=== PATIENT | female | born 1930 | race Caucasian/White ===

== ENCOUNTER → 2017-08-18 | Outpatient (CLI) | payer MEDICARE, OTHER ==
--- NOTE | 2017-08-18 15:28 | WOMENS IMAGING REPORT ---
EXAM DESCRIPTION: BONE DENSITY HIP/SPINE COMPLETED DATE/TIME: 08/18/2017 2:21 pm REASON FOR STUDY: OSTEOPROSIS; M81.0 M81.0 AGE-RELATED OSTEOPOROSIS W/O CURRENT PATHOLOGICAL FRAC COMPARISON: 05/14/2012 10/28/2006 11/01/2003 TECHNIQUE: Dual-Energy X-ray Absorptiometry (DEXA) of the AP Spine and Hip. LIMITATIONS: None. FINDINGS: LUMBAR SPINE: The bone mineral density (BMD) measured from L1-L4 in the AP projection correlates with a T-score of -3.3, which is osteoporosis as defined by the World Health Organization. HIP: The bone mineral density (BMD) measured in the left hip correlates with a T-score of -2.4 in the femo ral neck, which is osteopenia as defined by the World Health Organization. IMPRESSION: 1. LUMBAR SPINE: OSTEOPOROSIS. 2. HIP: OSTEOPENIA. COMMENT: The World Health Organization defines low BMD as follows: T-score: Normal: Greater than -1.0 Osteopenia: Between -1.0 and -2.5 Osteoporosis: Less than -2.5 without fractures Established osteoporosis: Less than -2.5 with fractures In general, you may wish to consider: Diagnosis Treatment Follow-up DEXA Normal BMD Prevention 2-3 years Osteopenia Prevention/Therapy 1-2 years Osteoporosis Therapy Yearly TECHNICAL DOCUMENTATION: JOB ID: [id number]- All Rights Reserved
== END ==
LOC: WI 14:41
PROVIDERS: ATTEND Internal Medicine
DX: M81.0 Age-related osteoporosis without current pathological fracture (principal)
CPT/HCPCS: 77080

== ENCOUNTER 2017-12-09 08:56 | Day surgery (SDC) | payer MEDICARE, OTHER ==
[~2017-12-09 08:56] MED LIST: DIPHENHYDRAMINE HCL 50 MG/ML VIAL ONE; EPINEPHRINE INJ 1 MG/10 ML DISP.SYRIN ONE; FENTANYL CITRATE INJ/PF 100 MCG/2 ML AMPUL ONE; FLUMAZENIL INJ 0.5 MG/5 ML VIAL ONE; GLUCAGON,HUMAN RECOMB 1 MG INJ ONE; MIDAZOLAM 2 MG/2 ML INJ ONE; NALOXONE HCL INJ/PF 0.4 MG/1 ML SDV ONE; ONDANSETRON HCL INJ/PF 4 MG/2 ML SDV ONE
[2017-12-09] MEDS: MIDAZOLAM 2 MG/2 ML INJ ONE ×2 (09:20→09:22)
--- NOTE | 2017-12-09 09:33 | Operative Report ---
Operative Report DATE OF SURGERY: 12/09/17 Operative Report: The risks benefits and alternatives of the procedure explained to the patient in detail and informed consent is obtained.A GIF Olympus video scope was inserted into the patient's mouth and hypopharynx ,the esophagus is identified intubated and insufflated, the scope was then advanced through the esophagus stomach and duodenum, retroflexion maneuver is done, the esophagus stomach and first and second portions of the duodenum examined PREOPERATIVE DIAGNOSIS: Abdominal discomfort, dyspepsia, nausea POSTOPERATIVE DIAGNOSIS: Gastritis status post biopsy rule out Helicobacter pylori. Hiatal hernia OPERATION: EGD with biopsy SURGEON: SKY BROWN ANESTHESIA: Moderate Sedation - 3 mg of Versed. Conscious sedation monitoring time 30 minutes. TISSUE REMOVED OR ALTERED: Gastric mucosal specimen obtained COMPLICATIONS: None. ESTIMATED BLOOD LOSS: None. INTRAOPERATIVE FINDINGS: As noted above. PROCEDURE: Patient tolerated the procedure well. No immediate postprocedure complications are noted. Patient discharged in good condition. Discharge date 12/09/2017. Discharge diet: Regular. Discharge activity: Regular. 2-3 week follow-up to discuss findings. Patient is instructed to call the office or proceed to the emergency room should there be any further problems or questions. We will wait on pathology.
[2017-12-09 10:39] VITALS: BP 98/36
== END 2017-12-09 10:48 | disposition home or self-care (01) ==
LOC: END 08:56
PROVIDERS: ATTEND Internal Medicine Gastroenterology
PROC: 0DB68ZX Excision of Stomach, Via Natural or Artificial Opening Endoscopic, Diagnostic (ICD-10-PCS; principal; 2017-12-09 09:30)
DX: K29.50 Unspecified chronic gastritis without bleeding (principal); K44.9 Diaphragmatic hernia without obstruction or gangrene; I10 Essential (primary) hypertension; E07.9 Disorder of thyroid, unspecified; Z79.82 Long term (current) use of aspirin; Z79.899 Other long term (current) drug therapy; Z88.2 Allergy status to sulfonamides; Z85.828 Personal history of other malignant neoplasm of skin; Z86.19 Personal history of other infectious and parasitic diseases
CPT/HCPCS: 43239; 88342 ×2; 88305 ×2; J2250; J0171; J1200; J1610; J2310; J2405; J3010; J3490

== ENCOUNTER 2017-12-22 05:51 | Day surgery (SDC) | payer MEDICARE, OTHER ==
[2017-12-07 12:18] LABS: HEMATOCRIT 35.1 % (36.0-47.0); HEMOGLOBIN 12.2 g/dL (12.0-15.5); MEAN CORPUSCULAR HEMOGLOBIN 30.8 pg (27.0-33.4); MEAN CORPUSCULAR HGB CONC 34.9 g/dL (32.0-36.0); MEAN CORPUSCULAR VOLUME 88 fl (80-97); PLATELET COUNT 287 10^3/uL (150-450); RED BLOOD COUNT 3.97 10^6/uL (3.72-5.28); RED CELL DISTRIBUTION WIDTH 13.1 % (11.5-14.0); WHITE BLOOD COUNT 8.6 10^3/uL (4.0-10.5)
[2017-12-07 12:24] LABS: INTERNATIONAL RATION (INR) 1.05; PROTHROMBIN TIME 14.4 SEC (11.4-15.4)
[2017-12-07 12:25] LABS: PARTIAL THROMBOPLASTIN TIME 30.8 SEC (23.5-35.8)
--- NOTE | 2017-12-07 12:41 | EKG REPORT ---
SEVERITY:- NORMAL ECG - SINUS RHYTHM : Confirmed by: Fransisco Sharma 07-Dec-2017 12:40:40
[2017-12-07 12:44] LABS: ANION GAP 13 (5-19); BLOOD UREA NITROGEN 19 mg/dL (7-20); CALCIUM 9.7 mg/dL (8.4-10.2); CARBON DIOXIDE 25 mmol/L (22-30); CHLORIDE 94 mmol/L (98-107); GLUCOSE 78 mg/dL (75-110); POTASSIUM 5.2 mmol/L (3.6-5.0); SODIUM 131.5 mmol/L (137-145)
[~2017-12-22 05:51] MED LIST changes: +CEFAZOLIN 1 GM/D5W RTU 1 GM/50 ML RTUPB IV PRN; -DIPHENHYDRAMINE HCL 50 MG/ML VIAL ONE; -EPINEPHRINE INJ 1 MG/10 ML DISP.SYRIN ONE; -FENTANYL CITRATE INJ/PF 100 MCG/2 ML AMPUL ONE; -FLUMAZENIL INJ 0.5 MG/5 ML VIAL ONE; -GLUCAGON,HUMAN RECOMB 1 MG INJ ONE; +LACTATED RINGERS 1000 ML IV PRN; +LIDOCAINE 0.5% INJ-PF (5 MG/ML) 50 ML SDV SUBCUT PRN; +LIDOCAINE 1%/EPINEPHRINE INJ 20 ML VIAL ONE; -MIDAZOLAM 2 MG/2 ML INJ ONE; -NALOXONE HCL INJ/PF 0.4 MG/1 ML SDV ONE; -ONDANSETRON HCL INJ/PF 4 MG/2 ML SDV ONE
[2017-12-22] MEDS ORDERED: PROPOFOL INJ 200 MG/20 ML VIAL IV ONE (07:22)
[2017-12-22] MEDS ORDERED: SODIUM BICARBONATE 8.4% INJ 50 MEQ/50 ML DISP.SYRIN ONE (07:42)
[2017-12-22] MEDS ORDERED: DIPHENHYDRAMINE HCL 50 MG/ML VIAL IV PRN (08:33)
[2017-12-22] MEDS ORDERED: MORPHINE SULFATE 10 MG/ML INJ IV PRN (08:33)
[2017-12-22] MEDS ORDERED: MEPERIDINE HCL/PF INJ 25 MG/1 ML DISP.SYRIN IV PRN (08:33)
[2017-12-22] MEDS ORDERED: FENTANYL CITRATE INJ/PF 100 MCG/2 ML AMPUL IV PRN ×2 (08:33)
--- NOTE | 2017-12-22 09:35 | Operative Report ---
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 Patient was brought into the operating room and placed on the operating room table in a [supine] position. Patient was then prepped with a Betadine scrub and Betadine solution and draped in a sterile and aseptic manner. The area was then marked. 12 O'clock was marked towards the radial forearm 3 O'clock was marked towards the wrist 6:00 was marked towards the ulnar forearm 9:00 was marked towards the elbow The area was then anesthetized with 1% lidocaine with epinephrine and bicarbonate for its anesthetic and hemostatic effects. The area was then excised and marked at 12:00. The specimen was sent for frozen section. The frozen section result came back as positive 3:00 margin. This was diagnosed as a superficial spreading basal cell carcinoma. The 3:00 margin was sent and came back negative. Therefore the final results came back that the deep and lateral margins were free. We had considered a primary closure but this would go against the natural relaxed skin tension lines. A primary closure would be too tight and would have increased chance of dehiscence. This will leave more of a scar so we decided to use a boomerang flap reconstruction which would camouflage the scar better and take tension off of the closure so that would be less chances of complications. Then went ahead and outlined the flap and anesthetized it. It was felt that the boomerang flap would give the least tension because her skin was extremely thin and a tension-free closure for the reconstruction was very important. We then incised the flap and developed a flap maintaining the subdermal plexus. Then we undermined 360 to allow for plate like scarring and minimize trap door deformity. Throughout the case hemostasis was achieved with the bipolar. We then sutured the flap into its new position using [ 4-0 Vicryl] for the subcutaneous and deep dermis. Skin was closed with a [running subcuticular suture] stitch using 4-0 Prolene with knots being tied on the outside. And 4-0 Prolene suture was used for support and placed in the central area of the incision. We then applied tincture benzoin and Steri-Strips followed by a light pressure dressing. Patient was then reversed from anesthesia and taken to the [facility] for recovery. The patient tolerated well. There were no complications. Lesion size was approximately 2.2 x 2 cm, please see pathology for actual size. Portions of this note may be dictated using [employer] voice recognition software. Occasional variations and spelling and vocabulary could be possible and are unintentional. Additionally, there is a chance that some errors may not be caught or corrected. Please notify the author of any discrepancies noted or if any statements are unclear. Subjective: No complaints Objective: Vital signs stable afebrile No bleeding Dressing intact Assessment and plan: Doing well. Elevate the operative site. Resume medications. Take antibiotics for 1 day Follow-up Full instructions were given to the patient and family and they understand Portions of this note may be dictated using [employer] voice recognition software. Occasional variations and spelling and vocabulary could be possible and are unintentional. Additionally, there is a chance that some errors may not be caught or corrected. Please notify the offer of any discrepancies noted or if any statements are unclear.
--- NOTE | 2017-12-22 09:37 | PDOC DISCHARGE SUMMARY ---
Discharge Summary (SDC) - Discharge Final Diagnosis: Superficial spreading basal cell carcinoma Date of Surgery: 12/22/17 Condition: Good Treatment or Instructions: Leave the top dressing on for 2 days, then removed. Leave the steri-strip tapes on for 5 days, then removal. Then cleaning wound with peroxide and apply Neosporin/bacitracin 3 times per day. Antibiotics for 1 day, then discontinue. Elevate operative area to decrease swelling. Do not strain, or lift heavy objects. Call for excessive bleeding, increased temperature of 101, uncontrolled pain, or excessive nausea or vomiting. You may reach Dr. Escalera through his office at [phone]. In the event of an emergency after hours, then contact Dr. Escalera through [facility]. Return to the office for a postop check on . The time will be scheduled by the nursing staff of [facility] prior to discharge. Please give the patient a copy of their labs and EKG so they can bring this to their PMD. Thank you Portions of this note may be dictated using [employer] voice recognition software. Occasional variations and spelling and vocabulary could be possible and are unintentional. Additionally, there is a chance that some errors may not be caught or corrected. Please notify the offer of any discrepancies noted or if any statements are unclear. Referrals: BRIJESH MCALLISTER MD [Primary Care Provider] - Discharge Diet: As Tolerated Report the Following to Your Physician Immediately: Unusual Bleeding - Monitor capillary refill. Keep arm elevated. No excessive activities.
[2017-12-22 11:10] VITALS: BP 135/70
== END 2017-12-22 11:15 | disposition home or self-care (01) ==
LOC: OROUT 05:51
PROVIDERS: ATTEND Plastic Surgery
PROC: 0JBG0ZZ Excision of Right Lower Arm Subcutaneous Tissue and Fascia, Open Approach (ICD-10-PCS; 2017-12-22)
PROC: 0JX Subcutaneous Tissue and Fascia, Transfer (ICD-10-PCS; principal; 2017-12-22 08:00)
DX: C44.612 Basal cell carcinoma of skin of right upper limb, including shoulder (principal); L57.0 Actinic keratosis; I10 Essential (primary) hypertension; B18.1 Chronic viral hepatitis B without delta-agent; C91.11 Chronic lymphocytic leukemia of B-cell type in remission; Z79.01 Long term (current) use of anticoagulants; Z79.899 Other long term (current) drug therapy; Z85.828 Personal history of other malignant neoplasm of skin; Z86.718 Personal history of other venous thrombosis and embolism; Z88.2 Allergy status to sulfonamides
CPT/HCPCS: 14020; 93005; 36415 ×2; 84132; 85027; 85610; 85730; 80048; 88305 ×2; 88331 ×2; 93010; J0690; J3490 ×2; J2704; 400

== ENCOUNTER 2018-03-09 05:28 | Day surgery (SDC) | payer MEDICARE, OTHER ==
[~2018-03-09 05:28] MED LIST changes: -LACTATED RINGERS 1000 ML IV PRN; -LIDOCAINE 0.5% INJ-PF (5 MG/ML) 50 ML SDV SUBCUT PRN; -LIDOCAINE 1%/EPINEPHRINE INJ 20 ML VIAL ONE
[2018-03-09] MEDS ORDERED: LIDOCAINE 1%/EPINEPHRINE INJ 20 ML VIAL ONE (05:52)
[2018-03-09] MEDS ORDERED: SODIUM BICARBONATE 8.4% INJ 50 MEQ/50 ML DISP.SYRIN ONE (05:52)
[2018-03-09 06:11] LABS: INTERNATIONAL RATION (INR) 1.04; PARTIAL THROMBOPLASTIN TIME 28.9 SEC (23.5-35.8); PROTHROMBIN TIME 14.1 SEC (11.4-15.4)
[2018-03-09 06:14] LABS: HEMATOCRIT 34.6 % (36.0-47.0); MEAN CORPUSCULAR HEMOGLOBIN 30.3 pg (27.0-33.4); MEAN CORPUSCULAR HGB CONC 34.6 g/dL (32.0-36.0); MEAN CORPUSCULAR VOLUME 88 fl (80-97); PLATELET COUNT 283 10^3/uL (150-450); RED BLOOD COUNT 3.94 10^6/uL (3.72-5.28); RED CELL DISTRIBUTION WIDTH 13.4 % (11.5-14.0); WHITE BLOOD COUNT 8.1 10^3/uL (4.0-10.5)
[2018-03-09 06:40] LABS: ANION GAP 14 (5-19); BLOOD UREA NITROGEN 20 mg/dL (7-20); CALCIUM 9.5 mg/dL (8.4-10.2); CARBON DIOXIDE 26 mmol/L (22-30); CHLORIDE 97 mmol/L (98-107); GLUCOSE 92 mg/dL (75-110); POTASSIUM 4.7 mmol/L (3.6-5.0); SODIUM 137.4 mmol/L (137-145)
[2018-03-09] MEDS ORDERED: PROPOFOL INJ 200 MG/20 ML VIAL IV ONE (07:06)
[2018-03-09] MEDS ORDERED: MIDAZOLAM 2 MG/2 ML INJ ONE (07:06)
[2018-03-09] MEDS ORDERED: FENTANYL CITRATE INJ/PF 100 MCG/2 ML AMPUL ONE (07:06)
--- NOTE | 2018-03-09 07:19 | EKG REPORT ---
SEVERITY:- OTHERWISE NORMAL ECG - SINUS RHYTHM BORDERLINE LEFT AXIS DEVIATION : Confirmed by: Husam Ortiz MD 09-Mar-2018 07:19:20
[2018-03-09] MEDS ORDERED: FENTANYL CITRATE INJ/PF 100 MCG/2 ML AMPUL IV PRN ×3 (07:54)
[2018-03-09] MEDS ORDERED: ONDANSETRON HCL INJ/PF 4 MG/2 ML SDV IV PRN (07:54)
[2018-03-09] MEDS ORDERED: DIPHENHYDRAMINE HCL 50 MG/ML VIAL IV PRN (07:54)
--- NOTE | 2018-03-09 09:02 | Operative Report ---
Operative Report DATE OF SURGERY: 03/09/18 PREOPERATIVE DIAGNOSIS: Basal cell carcinoma of the left lateral pre-tibia anterior superior with positive lateral margins POSTOPERATIVE DIAGNOSIS: Same OPERATION: Excision of basal cell carcinoma from the left lateral pre-tibia anterior, superior with frozen section margin control and reconstruction with a O to S plasty flap reconstruction SURGEON: LONI SANDOVAL ANESTHESIA: LMAC TISSUE REMOVED OR ALTERED: Basal cell carcinoma COMPLICATIONS: None ESTIMATED BLOOD LOSS: Minimal PROCEDURE: Patient seen and was marked prior to being brought into the operating room. Patient was brought into the operating room and placed on the operating room table in a [supine] position. Patient was then prepped with a Betadine scrub and Betadine solution and draped in a sterile and aseptic manner. The area was then marked. 12 O'clock was marked towards the knee 3 O'clock was marked towards the left lateral calf 6:00 was marked towards the ankle 9:00 was marked towards the medial calf The area was then anesthetized with 1% lidocaine with epinephrine and bicarbonate for its anesthetic and hemostatic effects. The area was then excised and marked at 12:00. The specimen was sent for frozen section. The results came back that the deep and lateral margins were free. We had considered a primary closure but this would go against the natural relaxed skin tension lines. A primary closure would be too tight and would have increased chance of dehiscence. This will leave more of a scar so we decided to use a [O to S] flap reconstruction which would camouflage the scar better and take tension off of the closure so that would be less chances of complications. Again the flap we chose would allow us to use the minimal amount of laxity that was present in order to obtain a stable reconstruction. The skin was very thin and very frail so it was important to have a tension- free closure for the reconstruction. Then we went ahead and outlined the flap and anesthetized it. We then incised the flap and developed a flap maintaining the subdermal plexus. Then we undermined 360 to allow for plate like scarring and minimize trap door deformity. Throughout the case hemostasis was achieved with the bipolar. We then sutured the flap into its new position using [ 4-0 Vicryl] for the subcutaneous and deep dermis. Skin was closed with a [running subcuticular suture] stitch using [4-0 PDS] with knots being tied on the outside. And [4-0 PDS] suture was used for support and placed in the central area of the incision. We then applied tincture benzoin and Steri-Strips followed by a light pressure dressing. Patient was then reversed from anesthesia and taken to the [facility] for recovery. The patient tolerated well. There were no complications. Lesion size was approximately 1.8 x 1.7 cm please see pathology for actual size. Portions of this note may be dictated using [employer] voice recognition software. Occasional variations and spelling and vocabulary could be possible and are unintentional. Additionally, there is a chance that some errors may not be caught or corrected. Please notify the author of any discrepancies noted or if any statements are unclear. Subjective: No complaints Objective: Vital signs stable afebrile No bleeding Dressing intact Assessment and plan: Doing well. Elevate the operative site. Resume medications. Take antibiotics for 1 day Follow-up Full instructions were given to the patient and family and they understand Portions of this note may be dictated using [employer] voice recognition software. Occasional variations and spelling and vocabulary could be possible and are unintentional. Additionally, there is a chance that some errors may not be caught or corrected. Please notify the offer of any discrepancies noted or if any statements are unclear.
--- NOTE | 2018-03-09 09:04 | Discharge Summary ---
Discharge Summary (SDC) - Discharge Final Diagnosis: Basal cell carcinoma of the left lateral pre-tibia, anterior, superior. Date of Surgery: 03/09/18 Condition: Good Treatment or Instructions: Leave the top dressing on for 2 days, then removed. Leave the steri-strip tapes on for 5 days, then removal. Then cleaning wound with peroxide and apply Neosporin/bacitracin 3 times per day. Antibiotics for 1 day, then discontinue. Elevate operative area to decrease swelling. Do not strain, or lift heavy objects. Call for excessive bleeding, increased temperature of 101, uncontrolled pain, or excessive nausea or vomiting. You may reach Dr. Escalera through his office at [phone]. In the event of an emergency after hours, then contact Dr. Escalera through [facility]. Return to the office for a postop check on . The time will be scheduled by the nursing staff of [facility] prior to discharge. Please give the patient a copy of their labs and EKG so they can bring this to their PMD. Thank you Portions of this note may be dictated using [employer] voice recognition software. Occasional variations and spelling and vocabulary could be possible and are unintentional. Additionally, there is a chance that some errors may not be caught or corrected. Please notify the offer of any discrepancies noted or if any statements are unclear. Referrals: BRIJESH MCALLISTER MD [Primary Care Provider] - Discharge Diet: As Tolerated Report the Following to Your Physician Immediately: Unusual Bleeding - Keep leg elevated. No excessive activities. If dressing gets too tight loosen it. If dressing gets to loose tighten it. If tape irritates the skin please contact me at the office
[2018-03-09 10:59] VITALS: BP 153/77
== END 2018-03-09 10:30 | disposition home or self-care (01) ==
LOC: OROUT 05:28
PROVIDERS: ATTEND Plastic Surgery
DX: C44.719 Basal cell carcinoma of skin of left lower limb, including hip (principal); I10 Essential (primary) hypertension; E03.9 Hypothyroidism, unspecified; B18.1 Chronic viral hepatitis B without delta-agent; C91.Z1 Other lymphoid leukemia, in remission; Z79.01 Long term (current) use of anticoagulants; Z88.2 Allergy status to sulfonamides; Z79.899 Other long term (current) drug therapy; Z91.040 Latex allergy status; Z86.718 Personal history of other venous thrombosis and embolism
CPT/HCPCS: 36415; 85027; 85610; 85730; 80048; 88305 ×2; 88331 ×2; 93005; 93010; 14020; J2250; J0690; J3010; J3490 ×2; J2704; 400

== ENCOUNTER 2018-11-06 21:38 | Emergency (ER) | payer MEDICARE, OTHER ==
[2018-11-06 23:16] LABS: ABSOLUTE EOSINOPHILS # (AUTO) 0.1 10^3/uL (0.0-0.6); ABSOLUTE LYMPHOCYTES (AUTO) 1.7 10^3/uL (0.5-4.7); ABSOLUTE MONOCYTES (AUTO) 0.5 10^3/uL (0.1-1.4); ABSOLUTE NEUT (AUTO) 6.5 10^3/uL (1.7-8.2); BASOPHILS % (AUTO) 0.3 % (0-2); EOSINOPHILS % (AUTO) 1.4 % (0-6); HEMATOCRIT 35.8 % (36.0-47.0); HEMOGLOBIN 12.5 g/dL (12.0-15.5); LYMPHOCYTES % (AUTO) 19.2 % (13-45); MEAN CORPUSCULAR HEMOGLOBIN 31.1 pg (27.0-33.4); MEAN CORPUSCULAR HGB CONC 34.8 g/dL (32.0-36.0); MEAN CORPUSCULAR VOLUME 90 fl (80-97); MONOCYTES % (AUTO) 5.8 % (3-13); PLATELET COUNT 279 10^3/uL (150-450); SEGMENTED NEUTROPHILS % (AUTO) 73.3 % (42-78); TOTAL CELLS COUNTED % (AUTO) 100 %; WHITE BLOOD COUNT 8.9 10^3/uL (4.0-10.5)
[2018-11-06 23:59] LABS: ALANINE AMINOTRANSFERASE 21 U/L (9-52); ALBUMIN 4.4 g/dL (3.5-5.0); ALKALINE PHOSPHATASE 154 U/L (38-126); ANION GAP 13 (5-19); ASPARTATE AMINO TRANSFERASE 26 U/L (14-36); BILIRUBIN,DIRECT 0.3 mg/dL (0.0-0.4); BILIRUBIN,TOTAL 0.7 mg/dL (0.2-1.3); BLOOD UREA NITROGEN 16 mg/dL (7-20); CALCIUM 9.2 mg/dL (8.4-10.2); CARBON DIOXIDE 21 mmol/L (22-30); CHLORIDE 95 mmol/L (98-107); GLUCOSE 100 mg/dL (75-110); POTASSIUM 4.4 mmol/L (3.6-5.0); SODIUM 128.5 mmol/L (137-145); TOTAL PROTEIN 6.9 g/dL (6.3-8.2)
--- NOTE | 2018-11-07 01:14 | ER Document Report ---
ED General - General Chief Complaint: Blood Pressure Problem Stated Complaint: BLOOD PRESSURE PROBLEMS Time Seen by Provider: 11/06/18 22:19 Notes: Patient is an 88-year-old female with a past medical history of hypertension, prior surgical history of cholecystectomy, appendectomy, presents with of high blood pressure. Patient states that her doctor has been trying to adjust her blood pressure medications to bring her blood pressure back into normal ranges. States that tonight she became concerned because she checked her blood pressure and it was elevated into the 180s systolic. Patient states that she has also had intermittent upper abdominal pain with associated nausea for the last 3 days. She states however that the main reason she came to the emergency department due to her high blood pressure and that she intermittently gets similar abdominal pains. She denies any chest pain, shortness of breath, vomiting, diarrhea, or any component of severe abdominal pain. Her abdominal pain is described as a mild, aching, intermittent, generally localized to the upper abdomen TRAVEL OUTSIDE OF THE [place] IN LAST 30 DAYS: No - Related Data Allergies/Adverse Reactions: Sulfa (Sulfonamide Antibiotics) Allergy (Mild, Verified 12/09/17 09:10) Nausea adhesive tape [Adhesive Tape] Allergy (Verified 12/09/17 09:10) Itching latex Adverse Reaction (Verified 12/09/17 09:10) Red, itching Past Medical History - General Information source: Patient - Social History Smoking Status: Never Smoker Chew tobacco use (# tins/day): No Frequency of alcohol use: None Drug Abuse: None Lives with: Alone Family History: Reviewed & Not Pertinent Patient has suicidal ideation: No Patient has homicidal ideation: No - Past Medical History Cardiac Medical History: Reports: Hx Hypercholesterolemia, Hx Hypertension Denies: Hx Coronary Artery Disease, Hx Heart Attack Pulmonary Medical History: Denies: Hx Asthma, Hx Bronchitis, Hx COPD, Hx Pneumonia, Hx Tuberculosis Neurological Medical History: Denies: Hx Cerebrovascular Accident, Hx Seizures Endocrine Medical History: Reports: Hx Hypothyroidism Renal/ Medical History: Denies: Hx Kidney Stones, Hx Peritoneal Dialysis Malignancy Medical History: 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 Denies: Hx Hysterectomy, Hx Mastectomy, Hx Open Heart Surgery, Hx Pacemaker - Immunizations Hx Diphtheria, Pertussis, Tetanus Vaccination: Yes Hx Pneumococcal Vaccination: 08/02/13 Review of Systems - Review of Systems Notes: Constitutional: Negative for fever. HENT: Negative for sore throat. Eyes: Negative for visual changes. Cardiovascular: Negative for chest pain. Respiratory: Negative for shortness of breath. Gastrointestinal: Positive for abdominal pain and nausea Genitourinary: Negative for dysuria. Musculoskeletal: Negative for back pain. Skin: Negative for rash. Neurological: Negative for headaches, weakness or numbness. 10 point ROS negative except as marked above and in HPI. Physical Exam - Vital signs Vitals: Temp Pulse Resp BP 97.7 F 65 16 123/55 L 11/06/18 21:48 11/06/18 21:48 11/06/18 21:48 11/06/18 21:48 Interpretation: Normal Notes: PHYSICAL EXAMINATION: GENERAL: Well-appearing, well-nourished and in no acute distress. HEAD: Atraumatic, normocephalic. EYES: Pupils equal round and reactive to light, extraocular movements intact, sclera anicteric, conjunctiva are normal. ENT: nares patent, oropharynx clear without exudates. Moist mucous membranes. NECK: Normal range of motion, supple without lymphadenopathy LUNGS: Breath sounds clear to auscultation bilaterally and equal. No wheezes rales or rhonchi. HEART: Regular rate and rhythm without murmurs ABDOMEN: Soft, nontender, normoactive bowel sounds. No guarding, no rebound. No masses appreciated. EXTREMITIES: Normal range of motion, no pitting or edema. No cyanosis. NEUROLOGICAL: No focal neurological deficits. Moves all extremities spontaneously and on command. PSYCH: Normal mood, normal affect. SKIN: Warm, Dry, normal turgor, no rashes or lesions noted. Course - Re-evaluation Re-evalutation: 11/07/18 01:12 Patient presents with concerns of hypertension which is long-standing in nature. She states that she was quite anxious about this and this is why she called 911 to come to the emergency department. However on presentation my primary concern is that the patient has been complaining of generalized abdominal discomfort with associated nausea but no vomiting. States this is been present for the past 3 days. She has no focal tenderness on abdominal exam. She is otherwise extremely well in appearance, vital within normal as with exception of mild hypertension. Labs unremarkable. Given patient's advanced age CT scan of the abdomen pelvis is pending. Troponin and EKG unremarkable. Do not suspect an atypical presentation of ACS. In regards her blood pressure I would advise follow-up with her primary care physician 11/07/18 02:22 CT scan of the abdomen pelvis without any acute findings. Abdominal exam remains benign. At this time will discharge with return precautions and follow- up recommendations. Verbal discharge instructions given a the bedside and opportunity for questions given. Medication warnings reviewed. Patient is in agreement with this plan and has verbalized understanding of return precautions and the need for primary care follow-up in the next 24-72 hours. - Vital Signs Vital signs: Temp Pulse Resp BP Pulse Ox 97.7 F 65 16 156/72 H 95 11/06/18 21:48 11/06/18 21:48 11/06/18 21:48 11/07/18 00:01 11/07/18 00:01 - Laboratory Result Diagrams: 11/06/18 23:07 11/06/18 23:07 Laboratory results interpreted by me: 11/06/18 11/06/18 11/06/18 23:07 23:07 23:07 Hct 35.8 L Sodium 128.5 L Chloride 95 L Carbon Dioxide 21 L Alkaline Phosphatase 154 H Lipase 21.7 L - Diagnostic Test Radiology reviewed: Reports reviewed - EKG Interpretation by Me Additional EKG results interpreted by me: 11/07/18 01:13 Sinus rhythm, rate 64. No ST elevations or depressions. QTC is 421. Discharge - Discharge Clinical Impression: Nausea, Essential hypertension Abdominal pain Qualifiers: Abdominal location: upper abdomen, unspecified Qualified Code(s): R10.10 - Upper abdominal pain, unspecified Condition: Good Disposition: HOME, SELF-CARE Additional Instructions: You have been seen in the Emergency Department (ED) for abdominal pain. Your evaluation did not identify a clear cause of your symptoms but was generally reassuring. Please follow up with your doctor as soon as possible regarding today's emergent visit and the symptoms that are bothering you. Return to the ED if your abdominal pain worsens or fails to improve, you develop bloody vomiting, bloody diarrhea, you are unable to tolerate fluids due to vomiting, fever greater than 101, or other symptoms that concern you. You were seen today for blood pressure that was high. This is a long-term risk factor for multiple medical problems including heart attack and stroke. Cameron r, the blood pressure in of itself will not cause you to have an acute stroke or heart attack over the course of just several days or weeks. You need to have a gradual reduction of your blood pressure back to normal levels over the next several months in conjunction with your primary care physician. Return if you develop headache, weakness, numbness, chest pain, pass out, or have any other symptoms that are concerning to you. Referrals: LONI SANDOVAL MD [Primary Care Provider] - Follow up as needed
--- NOTE | 2018-11-07 01:42 | RADIOLOGY REPORT (SQ) ---
CLINICAL HISTORY: abdominal pain, nausea, elderly COMPARISON: None. TECHNIQUE: CT ABDOMEN PELVIS WITH IV CONTRAST on 11/07/2018 12:53 AM [employer] This exam was performed according to our departmental dose-optimization program, which includes automated exposure control, adjustment of the mA and/or kV according to patient size and/or use of iterative reconstruction technique. FINDINGS: Lower lungs are clear. Abdomen: The liver is normal in appearance. There is no biliary dilatation. Cholecystectomy was performed. There is a small hiatal hernia. There is a small duodenal diverticulum. The pancreas and spleen are normal in appearance. Adrenal glands are normal. Kidneys are mildly atrophic. There is a small posterior apical left renal cyst. Abdominal aorta is normal in course and caliber without aneurysm. There is no free air. There is no retroperitoneal adenopathy.Abdominal aorta is densely calcified without aneurysm. Pelvis: There are scattered calcifications in the central small bowel mesentery bilaterally. No associated focal mass. Urinary bladder is unremarkable. There is no free fluid. Uterus is normal in size. Appendix is not clearly seen. Skeleton: There are no acute osseous findings. No suspicious bony lesions. IMPRESSION: Indeterminate calcifications within the mesentery. No definite acute inflammatory process.
[2018-11-07 03:04] VITALS: BP 160/82
--- NOTE | 2018-11-07 12:45 | EKG REPORT ---
SEVERITY:- OTHERWISE NORMAL ECG - SINUS RHYTHM BORDERLINE LEFT AXIS DEVIATION : Confirmed by: Izabel Hollins MD 07-Nov-2018 12:44:20
== END 2018-11-07 03:02 | disposition home or self-care (01) ==
LOC: ER 21:38
DX: I10 Essential (primary) hypertension (principal); R10.10 Upper abdominal pain, unspecified; R11.0 Nausea
CPT/HCPCS: 36415; 74177; 80053; 83690; 84484; 85025; 93005; 93010; 99284

== ENCOUNTER 2018-11-27 09:24 | Emergency (ER) | payer MEDICARE, OTHER ==
[2018-11-27] MEDS ORDERED: LIDOCAINE 2% VISCOUS SOLN 20 ML UDCUP PO ONE (11:07)
[2018-11-27] MEDS ORDERED: MAG HYDROX/AL HYDROX/SIMETH SUSP 30 ML UDCUP PO ONE (11:07)
--- NOTE | 2018-11-27 11:08 | ER Document Report ---
ED Medical Screen (RME) - General Chief Complaint: Chest Pain Stated Complaint: CHEST PAIN Time Seen by Provider: 11/27/18 11:03 Primary Care Provider: LONI SANDOVAL MD [Primary Care Provider] - Follow up as needed Notes: 88-year-old female patient reports onset about 1 AM of epigastric chest discomfort goes up toward the right shoulder. There is been some nausea with this. She is scheduled for upper endoscopy on 12/01/2018 for similar symptoms. She has had her gallbladder removed in the past. There is tenderness to palpate in the epigastric region. She will be given a GI cocktail and laboratory workup started in the RME. I have greeted and performed a rapid initial assessment of this patient. A comprehensive ED assessment and evaluation of the patient, analysis of test results and completion of the medical decision making process will be conducted by additional ED providers. TRAVEL OUTSIDE OF THE [place] IN LAST 30 DAYS: No - Related Data Allergies/Adverse Reactions: Sulfa (Sulfonamide Antibiotics) Allergy (Mild, Verified 12/09/17 09:10) Nausea adhesive tape [Adhesive Tape] Allergy (Verified 12/09/17 09:10) Itching latex Adverse Reaction (Verified 12/09/17 09:10) Red, itching Past Medical History - Past Medical History Cardiac Medical History: Reports: Hx Hypercholesterolemia, Hx Hypertension Denies: Hx Coronary Artery Disease, Hx Heart Attack Pulmonary Medical History: Denies: Hx Asthma, Hx Bronchitis, Hx COPD, Hx Pneumonia, Hx Tuberculosis Neurological Medical History: Denies: Hx Cerebrovascular Accident, Hx Seizures Endocrine Medical History: Reports: Hx Hypothyroidism Renal/ Medical History: Denies: Hx Kidney Stones, Hx Peritoneal Dialysis Malignancy Medical History: 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 Denies: Hx Hysterectomy, Hx Mastectomy, Hx Open Heart Surgery, Hx Pacemaker - Immunizations Hx Diphtheria, Pertussis, Tetanus Vaccination: Yes History of Influenza Vaccine for 08/2017 - 12/2017 Season: Yes Influenza Administration Date for 08/2017 - 12/2017 Season: 08/02/17 Physical Exam - Vital signs Vitals: Temp Pulse Resp BP Pulse Ox 98.4 F 63 16 123/53 L 98 11/27/18 09:29 11/27/18 09:29 11/27/18 09:29 11/27/18 09:29 11/27/18 09:29 Course - Vital Signs Vital signs: Temp Pulse Resp BP Pulse Ox 98.4 F 63 16 123/53 L 98 11/27/18 09:29 11/27/18 09:29 11/27/18 09:29 11/27/18 09:29 11/27/18 09:29 Doctor's Discharge - Discharge Referrals: LONI SANDOVAL MD [Primary Care Provider] - Follow up as needed
--- NOTE | 2018-11-27 11:34 | ER Document Report ---
ED General - General Chief Complaint: Chest Pain Stated Complaint: CHEST PAIN Time Seen by Provider: 11/27/18 11:03 Primary Care Provider: LONI SANDOVAL MD [ACTIVE STAFF] - Follow up as needed TRAVEL OUTSIDE OF THE [place] IN LAST 30 DAYS: No - HPI Notes: Patient is an 88-year-old female with a history of hypertension, cholecystectomy, appendectomy who presents to the emergency department complaining of feeling a burning pain from her mid chest under her epigastric area around 0 100. Patient states that that initial intense pain has resolved. She did have associated nausea without vomiting. Patient is unaware if food makes it worse. She is scheduled for an endoscopy in 4 days. She denies any significant cardiopulmonary medical history. She is urinating normally and h aving normal bowel movements. No other radiation of pain. No other concerns or complaints. Denies any prolonged immobilization, distance travel, recent surgery/trauma, personal cancer history, hormone use, smoking, or previous DVT/PE. Denies any headache, fever, neck pain, URI, sore throat, palpitations, syncope, cough, shortness of breath, wheeze, dyspnea, vomiting/diarrhea, urinary retention, dysuria, hematuria, or rash. - Related Data Allergies/Adverse Reactions: Sulfa (Sulfonamide Antibiotics) Allergy (Mild, Verified 12/09/17 09:10) Nausea adhesive tape [Adhesive Tape] Allergy (Verified 12/09/17 09:10) Itching latex Adverse Reaction (Verified 12/09/17 09:10) Red, itching Past Medical History - Social History Smoking Status: Never Smoker Family History: Reviewed & Not Pertinent Patient has suicidal ideation: No Patient has homicidal ideation: No - Past Medical History Cardiac Medical History: Reports: Hx Hypercholesterolemia, Hx Hypertension Denies: Hx Coronary Artery Disease, Hx Heart Attack Pulmonary Medical History: Denies: Hx Asthma, Hx Bronchitis, Hx COPD, Hx Pneumonia, Hx Tuberculosis Neurological Medical History: Denies: Hx Cerebrovascular Accident, Hx Seizures Endocrine Medical History: Reports: Hx Hypothyroidism Renal/ Medical History: Denies: Hx Kidney Stones, Hx Peritoneal Dialysis Malignancy Medical History: 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 Denies: Hx Hysterectomy, Hx Mastectomy, Hx Open Heart Surgery, Hx Pacemaker - Immunizations Hx Diphtheria, Pertussis, Tetanus Vaccination: Yes Hx Pneumococcal Vaccination: 08/02/13 Review of Systems - Review of Systems -: Yes All other systems reviewed and negative Physical Exam - Vital signs Vitals: Temp Pulse Resp BP Pulse Ox 98.4 F 63 16 123/53 L 98 11/27/18 09:29 11/27/18 09:29 11/27/18 09:29 11/27/18 09:29 11/27/18 09:29 - Notes Notes: PHYSICAL EXAMINATION: GENERAL: Well-appearing, well-nourished and in no acute distress. A&Ox4. answers questions appropriately. Very pleasant. HEAD: Atraumatic, normocephalic. EYES: Pupils equal round and reactive to light, extraocular movements intact, s clera anicteric, conjunctiva are normal. ENT: Nares patent and without discharge. oropharynx clear without exudates. No tonsilar hypertrophy or erythema. Moist mucous membranes. NECK: Normal range of motion, supple without lymphadenopathy LUNGS: Breath sounds clear to auscultation bilaterally and equal. No wheezes rales or rhonchi. HEART: Regular rate and rhythm without murmurs, rubs, gallops. ABDOMEN: Soft, nontender, nondistended abdomen. No guarding, no rebound. No masses appreciated. Normal bowel sounds present. No CVA tenderness bilaterally. Musculoskeletal: FROM to passive/active. Strength 5+/5. Ijeoma neg. No asymmetry to LE's. Extremities: No cyanosis, clubbing, or edema b/l. Peripheral pulses 2+. Capillary refill less than 3 seconds. NEUROLOGICAL: Normal speech, normal gait. PSYCH: Normal mood, normal affect. SKIN: Warm, Dry, normal turgor, no rashes or lesions noted. Course - Re-evaluation Re-evalutation: 11/27/18 13:18 Patient is an afebrile, well-hydrated 88-year-old female who presents to the ED with epigastric abd pain/atypical chest pain, suspect GERD/gastritis. Vitals are acceptable without any significant tachycardia, tachypnea, or hypoxia. PE is otherwise unremarkable. Patient is nontoxic-appearing and is tolerating p.o. without any difficulties. GI cocktail was given which immediately resolved pt's symptoms. Pt is now asymptomatic. CBC, CMP, EKG/cardiac enzymes, chest x-ray are all unremarkable for any acute pathology. She did have low sodium, which pt has had chronically and has been aware of. Patient has a heart score of 3, Wells score of 0. Patient does not have any chest pain, dyspnea, or shortness of breath. Pt and daughter have refused the delta troponin test be performed as they "do not think it is necessary at this time." No cardiopulmonary medical history. I did review the risk/benefit of their decision including going home and dying which they verbalized understanding of. This conversation was witnessed by HAN Fong. They are happy with their care and management otherwise and are ready for home. Patient's presentation and symptomatology creates lower suspicion for ACS, PE, pneumothorax, pericarditis, dissection, respiratory compromise, severe dehydration, sepsis, meningitis, or other systemic emergent condition at this time. Patient is aware that this condition can change from initial presentation and she needs to monitor symptoms closely and seek medical attention for any acute changes. Rx for omeprazole and carafate. Recommend conservative measures for symptoms. Recheck with your PCM in 2-3 days. Consider consult with Cardiology. Keep endoscopy appointment in 4 days. Return to the ED with any worsening/concerning symptoms otherwise as reviewed in discharge. Patient is in agreement. - Vital Signs Vital signs: Temp Pulse Resp BP Pulse Ox 98.4 F 63 13 133/60 H 96 11/27/18 09:29 11/27/18 09:29 11/27/18 12:01 11/27/18 12:01 11/27/18 12:01 - Laboratory Result Diagrams: 11/27/18 11:15 11/27/18 11:15 Laboratory results interpreted by me: 11/27/18 11/27/18 11:15 11:15 Hct 35.5 L Sodium 125.7 L Chloride 91 L Alkaline Phosphatase 144 H Discharge - Discharge Clinical Impression: Atypical chest pain GERD (gastroesophageal reflux disease) Qualifiers: Esophagitis presence: esophagitis presence not specified Qualified Code(s): K21.9 - Gastro-esophageal reflux disease without esophagitis Condition: Stable Disposition: HOME, SELF-CARE Instructions: Chest Pain of Unclear Cause ([facility]), Reflux Disease (GERD) ([facility]) Additional Instructions: Maintain adequate fluid and food intake Take home medications as directed Healthy diet Avoid spices/alcohol/caffeine Monitor blood pressure daily and keep a log Monitor symptoms for any acute changes Recheck with your PCM in 2-3 days Keep endoscopy appointment Consider a follow-up with cardiology Return to the ED with any worsening symptoms and/or development of fever, headache, chest pain, palpitations, syncope, shortness of breath, trouble breathing, abdominal pain, n/v/d, blood in stool/urine, loss of control of bowel/bladder, urinary retention, muscle weakness/paralysis, numbness/tingling, or other worsening symptoms that are concerning to you. Prescriptions: Omeprazole 20 mg PO DAILY #30 tablet. Sucralfate [Carafate] 1 gm PO BID #100 ml Forms: Elevated Blood Pressure Referrals: ANTOINETTE ALICEA MD [ACTIVE STAFF] - Follow up as needed
[2018-11-27 11:36] LABS: ABSOLUTE BASOPHILS # (AUTO) 0.1 10^3/uL (0.0-0.2); ABSOLUTE EOSINOPHILS # (AUTO) 0.1 10^3/uL (0.0-0.6); ABSOLUTE LYMPHOCYTES (AUTO) 2.3 10^3/uL (0.5-4.7); ABSOLUTE MONOCYTES (AUTO) 0.4 10^3/uL (0.1-1.4); ABSOLUTE NEUT (AUTO) 5.6 10^3/uL (1.7-8.2); BASOPHILS % (AUTO) 0.6 % (0-2); EOSINOPHILS % (AUTO) 1.6 % (0-6); HEMATOCRIT 35.5 % (36.0-47.0); HEMOGLOBIN 12.6 g/dL (12.0-15.5); LYMPHOCYTES % (AUTO) 26.5 % (13-45); MEAN CORPUSCULAR HEMOGLOBIN 31.1 pg (27.0-33.4); MEAN CORPUSCULAR HGB CONC 35.5 g/dL (32.0-36.0); MEAN CORPUSCULAR VOLUME 88 fl (80-97); MONOCYTES % (AUTO) 5.1 % (3-13); PLATELET COUNT 296 10^3/uL (150-450); RED BLOOD COUNT 4.06 10^6/uL (3.72-5.28); RED CELL DISTRIBUTION WIDTH 12.9 % (11.5-14.0); SEGMENTED NEUTROPHILS % (AUTO) 66.2 % (42-78); TOTAL CELLS COUNTED % (AUTO) 100 %; WHITE BLOOD COUNT 8.5 10^3/uL (4.0-10.5)
[2018-11-27 11:50] LABS: ALANINE AMINOTRANSFERASE 32 U/L (9-52); ALBUMIN 4.6 g/dL (3.5-5.0); ALKALINE PHOSPHATASE 144 U/L (38-126); ANION GAP 12 (5-19); ASPARTATE AMINO TRANSFERASE 22 U/L (14-36); BILIRUBIN,DIRECT 0.2 mg/dL (0.0-0.4); BLOOD UREA NITROGEN 11 mg/dL (7-20); CALCIUM 9.3 mg/dL (8.4-10.2); CARBON DIOXIDE 23 mmol/L (22-30); CHLORIDE 91 mmol/L (98-107); GLUCOSE 84 mg/dL (75-110); POTASSIUM 4.6 mmol/L (3.6-5.0); SODIUM 125.7 mmol/L (137-145); TOTAL PROTEIN 6.6 g/dL (6.3-8.2)
[2018-11-27] MEDS ORDERED: ONDANSETRON 4 MG TAB.RAPDIS PO ONE (12:36)
[2018-11-27] MEDS ORDERED: METOCLOPRAMIDE HCL ORAL SOLN 10 MG/10 ML UDCUP PO ONE (12:36)
--- NOTE | 2018-11-27 12:58 | RADIOLOGY REPORT (SQ) ---
EXAM DESCRIPTION: CHEST SINGLE VIEW COMPLETED DATE/TIME: 11/27/2018 11:49 am REASON FOR STUDY: chest pain/epigastric pain COMPARISON: AP chest 09/14/2016, 07/29/2016 EXAM PARAMETERS: NUMBER OF VIEWS: One view. TECHNIQUE: Single frontal radiographic view of the chest acquired. RADIATION DOSE: NA LIMITATIONS: None. FINDINGS: LUNGS AND PLEURA: Lungs are hyperinflated from obstructive disease. No focal infiltrates. No pleural effusion or pneumothorax. MEDIASTINUM AND HILAR STRUCTURES: No masses. Contour normal. HEART AND VASCULAR STRUCTURES: Stable mild cardiomegaly BONES: No acute findings. HARDWARE: None in the chest. OTHER: No other significant finding. IMPRESSION: Obstructive lung disease with stable mild cardiomegaly. No acute findings TECHNICAL DOCUMENTATION: JOB ID: [id number] [employer]- All Rights Reserved Reading location - IP/workstation name: [email or web address]
[2018-11-27 13:24] VITALS: BP 149/67
--- NOTE | 2018-11-27 21:38 | EKG REPORT ---
SEVERITY:- OTHERWISE NORMAL ECG - SINUS RHYTHM BORDERLINE LEFT AXIS DEVIATION : Confirmed by: Izabel Hollins MD 27-Nov-2018 21:37:45
== END 2018-11-27 13:36 | disposition home or self-care (01) ==
LOC: ER 09:24
DX: K21.9 Gastro-esophageal reflux disease without esophagitis (principal); R07.89 Other chest pain; I10 Essential (primary) hypertension; R10.13 Epigastric pain; R11.0 Nausea; Z90.49 Acquired absence of other specified parts of digestive tract; Z88.2 Allergy status to sulfonamides; Z91.048 Other nonmedicinal substance allergy status; Z91.040 Latex allergy status
CPT/HCPCS: 93005; 99285; 36415; 83690; 85025; 80053; 84484; 71045; 93010; A9270 ×2; J3490; S0119

== ENCOUNTER 2018-12-01 08:48 | Day surgery (SDC) | payer MEDICARE, OTHER ==
[2018-12-01] MEDS ORDERED: FENTANYL CITRATE INJ/PF 100 MCG/2 ML AMPUL ONE (09:50)
[2018-12-01] MEDS ORDERED: ONDANSETRON HCL INJ/PF 4 MG/2 ML SDV ONE (09:50)
[2018-12-01] MEDS ORDERED: DIPHENHYDRAMINE HCL 50 MG/ML VIAL ONE (09:50)
[2018-12-01] MEDS ORDERED: FLUMAZENIL INJ 0.5 MG/5 ML VIAL ONE (09:51)
[2018-12-01] MEDS ORDERED: GLUCAGON,HUMAN RECOMB 1 MG INJ ONE (09:51)
[2018-12-01] MEDS ORDERED: NALOXONE HCL INJ/PF 0.4 MG/1 ML SDV ONE (09:51)
[2018-12-01] MEDS ORDERED: EPINEPHRINE INJ 1 MG/10 ML DISP.SYRIN ONE (09:51)
[2018-12-01] MEDS: MIDAZOLAM 2 MG/2 ML INJ ONE ×2 (09:58→10:03)
--- NOTE | 2018-12-01 10:10 | Operative Report ---
Operative Report DATE OF SURGERY: 12/01/18 Operative Report: The risks benefits and alternatives of the procedure explained to the patient in detail and informed consent is obtained.A GIF Olympus video scope was inserted into the patient's mouth and hypopharynx, the esophagus is identified intubated and insufflated, the scope was then advanced through the esophagus stomach and duodenum, retroflexion maneuver is done, the esophagus stomach and first and second portions of the duodenum examined. PREOPERATIVE DIAGNOSIS: Gastroesophageal reflux disease, dyspepsia POSTOPERATIVE DIAGNOSIS: Gastritis status post biopsy rule out Helicobacter pylori. Hiatal hernia. Schatzki's ring which is broken with a biopsy forcep OPERATION: EGD with biopsy SURGEON: SKY BROWN ANESTHESIA: Moderate Sedation - 3 mg of Versed, 12.5 mg of fentanyl. Conscious sedation monitoring time 30 minutes. TISSUE REMOVED OR ALTERED: As noted above. COMPLICATIONS: None. ESTIMATED BLOOD LOSS: None. INTRAOPERATIVE FINDINGS: As noted above. PROCEDURE: Patient tolerated the procedure well. No immediate postprocedure comp occasions are noted. Patient discharged in good condition. Discharge date 12/01/2018. Discharge diet: Regular. Discharge activity: Regular. 2-3-week follow-up to discuss findings. Patient is instructed to call the office or proceed to the emergency room should there be any further problems or questions. I will wait to pathology.
[2018-12-01 11:22] VITALS: BP 140/70
== END 2018-12-01 11:20 | disposition home or self-care (01) ==
LOC: END 08:48
PROVIDERS: ATTEND Internal Medicine Gastroenterology
DX: K29.50 Unspecified chronic gastritis without bleeding (principal); K44.9 Diaphragmatic hernia without obstruction or gangrene; K22.2 Esophageal obstruction; I10 Essential (primary) hypertension; K21.9 Gastro-esophageal reflux disease without esophagitis; E07.9 Disorder of thyroid, unspecified; B19.10 Unspecified viral hepatitis B without hepatic coma; Z79.82 Long term (current) use of aspirin; Z79.899 Other long term (current) drug therapy
CPT/HCPCS: 43239; 88342 ×2; 88305 ×2; J2250; J3010; J0171; J1200; J1610; J2310; J2405; J3490

== ENCOUNTER 2019-05-24 09:58 | Day surgery (SDC) | payer MEDICARE, OTHER ==
[2019-05-18 10:30] LABS: MEAN CORPUSCULAR HGB CONC 34.4 g/dL (32.0-36.0); MEAN CORPUSCULAR VOLUME 87 fl (80-97); PLATELET COUNT 237 10^3/uL (150-450); RED BLOOD COUNT 4.01 10^6/uL (3.72-5.28); RED CELL DISTRIBUTION WIDTH 13.5 % (11.5-14.0); WHITE BLOOD COUNT 8.2 10^3/uL (4.0-10.5)
[2019-05-18 10:35] LABS: INTERNATIONAL RATION (INR) 1.09; PROTHROMBIN TIME 14.1 SEC (11.4-15.4)
[2019-05-18 10:36] LABS: PARTIAL THROMBOPLASTIN TIME 28.5 SEC (23.5-35.8)
--- NOTE | 2019-05-18 13:35 | EKG REPORT ---
SEVERITY:- BORDERLINE ECG - SINUS RHYTHM BORDERLINE LEFT AXIS DEVIATION BORDERLINE R WAVE PROGRESSION, ANTERIOR LEADS : Confirmed by: Husam Ortiz MD 18-May-2019 13:34:23
[~2019-05-24 09:58] MED LIST changes: +LACTATED RINGERS 1000 ML IV PRN; +LIDOCAINE 0.5% INJ-PF (5 MG/ML) 50 ML SDV SUBCUT PRN
[2019-05-24] MEDS ORDERED: CEFAZOLIN 1 GM/D5W RTU 1 GM/50 ML RTUPB IV ONE (10:30)
[2019-05-24] MEDS ORDERED: SODIUM BICARBONATE 4.2% INJ (2.5 MEQ/5 ML) VIAL ONE (11:13)
[2019-05-24] MEDS ORDERED: LIDOCAINE 1%/EPINEPHRINE INJ 20 ML VIAL ONE (11:13)
[2019-05-24] MEDS ORDERED: FENTANYL CITRATE INJ/PF 100 MCG/2 ML AMPUL ONE (11:17)
[2019-05-24] MEDS ORDERED: MIDAZOLAM 2 MG/2 ML INJ ONE (11:18)
[2019-05-24] MEDS ORDERED: PROPOFOL INJ 200 MG/20 ML VIAL IV ONE (11:18)
[2019-05-24] MEDS ORDERED: DIPHENHYDRAMINE HCL 50 MG/ML VIAL IV PRN (11:47)
[2019-05-24] MEDS ORDERED: FENTANYL CITRATE INJ/PF 100 MCG/2 ML AMPUL IV PRN ×3 (11:47)
[2019-05-24] MEDS ORDERED: ONDANSETRON HCL INJ/PF 4 MG/2 ML SDV IV PRN (11:47)
--- NOTE | 2019-05-24 12:50 | Operative Report ---
Operative Report DATE OF SURGERY: 05/24/19 PREOPERATIVE DIAGNOSIS: Basal cell carcinoma of the right anterior thigh POSTOPERATIVE DIAGNOSIS: Same OPERATION: Excision of basal cell carcinoma from the right anterior thigh with frozen section margin control and reconstruction with a 0 to S flap reconstruction SURGEON: LONI SANDOVAL ANESTHESIA: LMAC TISSUE REMOVED OR ALTERED: Basal cell carcinoma COMPLICATIONS: None ESTIMATED BLOOD LOSS: Minimal PROCEDURE: Patient seen and was marked prior to being brought into the operating room. Patient was brought into the operating room and placed on the operating room table in a supine position. Patient was then prepped with a Betadine scrub and Betadine solution and draped in a sterile and aseptic manner. The area was then marked. 12 O'clock was marked towards the mid thigh 3 O'clock was marked towards the knee 6:00 was marked towards the lateral thigh 9:00 was marked towards the groin The area was then anesthetized with 1% lidocaine with epinephrine and bicarbonate for its anesthetic and hemostatic effects. The area was then excised and marked at 12:00. The specimen was sent for frozen section. The results came back that the deep and lateral margins were free. We had considered a primary closure but this would go against the natural relaxed skin tension lines. A primary closure would be too tight and would have increased chance of dehiscence. This will leave more of a scar so we decided to use a O to S flap reconstruction which would camouflage the scar better and take tension off of the closure so that would be less chances of complications. We decided by using this flap that this would allow us to minimize the chances of having a depressed deformity in the thigh. Direct closure appeared that this was going to cause a depression and also be tight by just using the local tissue in the vicinity but with the flap reconstruction we were able to do a tension-free closure and minimize the deformity for this patient. Then we went ahead and outlined the flap and anesthetized it. We then incised the flap and developed a flap maintaining the subdermal plexus. Then we undermined 360 to allow for plate like scarring and minimize trap door deformity. Throughout the case hemostasis was achieved with the bipolar. We then sutured the flap into its new position using 4-0 Vicryl for the subcutaneous and deep dermis. Skin was closed with a running subcuticular suture stitch using 4-0 PDS with knots being tied on the outside. And 4-0 PDS suture was used for support and placed in the central area of the incision. We then applied tincture benzoin and Steri-Strips followed by a light pressure dressing. Patient was then reversed from anesthesia and taken to the [facility] for recovery. The patient tolerated well. There were no complications. Lesion size was approximately 1.5 cm please see pathology for actual size. Portions of this note may be dictated using [employer] voice recognition software. Occasional variations and spelling and vocabulary could be possible and are unintentional. Additionally, there is a chance that some errors may not be caught or corrected. Please notify the author of any discrepancies noted or if any statements are unclear. Subjective: No complaints Objective: Vital signs stable afebrile No bleeding Dressing intact Assessment and plan: Doing well. Elevate the operative site. Resume medications. Take antibiotics for 1 day Follow-up Full instructions were given to the patient and family and they understand Portions of this note may be dictated using [employer] voice recognition software. Occasional variations and spelling and vocabulary could be possible and are unintentional. Additionally, there is a chance that some errors may not be caught or corrected. Please notify the offer of any discrepancies noted or if any statements are unclear.
--- NOTE | 2019-05-24 12:52 | Discharge Summary ---
Discharge Summary (SDC) - Discharge Final Diagnosis: Basal cell carcinoma of the right anterior thigh Date of Surgery: 05/24/19 Condition: Good Treatment or Instructions: Leave the top dressing on for 2 days, then removed. Leave the steri-strip tapes on for 5 days, then removal. Then cleaning wound with peroxide and apply Neosporin/bacitracin 3 times per day. Antibiotics for 1 day, then discontinue. Elevate operative area to decrease swelling. Do not strain, or lift heavy objects. Call for excessive bleeding, increased temperature of 101, uncontrolled pain, or excessive nausea or vomiting. You may reach Dr. Escalera through his office at [phone]. In the event of an emergency after hours, then contact Dr. Escalera through [facility]. Return to the office for a postop check on . The time will be scheduled by the nursing staff of [facility] prior to discharge. Please give the patient a copy of their labs and EKG so they can bring this to their PMD. Thank you Portions of this note may be dictated using [employer] voice recognition software. Occasional variations and spelling and vocabulary could be possible and are unintentional. Additionally, there is a chance that some errors may not be caught or corrected. Please notify the offer of any discrepancies noted or if any statements are unclear. Referrals: BRIJESH MCALLISTER MD [Primary Care Provider] - Discharge Diet: As Tolerated Discharge Activity: No Lifting/Push/Pulling Report the Following to Your Physician Immediately: Unusual Bleeding - Try to keep operative area elevated. No bending or straining.
[2019-05-24 15:39] VITALS: BP 150/72
== END 2019-05-24 14:22 | disposition home or self-care (01) ==
LOC: OROUT 09:58
PROVIDERS: ATTEND Plastic Surgery
DX: C44.712 Basal cell carcinoma of skin of right lower limb, including hip (principal); Z86.718 Personal history of other venous thrombosis and embolism; E03.9 Hypothyroidism, unspecified; I10 Essential (primary) hypertension; Z79.899 Other long term (current) drug therapy; B18.1 Chronic viral hepatitis B without delta-agent
CPT/HCPCS: 93005; 36415; 85027; 85610; 85730; 88305 ×2; 88331 ×2; 93010; 14020; J2250; J0690; J3010; J3490 ×2; J2704; 400; 88307

== ENCOUNTER 2019-06-14 10:09 | Day surgery (SDC) | payer MEDICARE, OTHER ==
[~2019-06-14 10:09] MED LIST changes: +CEFAZOLIN 1 GM/D5W RTU 1 GM/50 ML RTUPB IV ONE; -LACTATED RINGERS 1000 ML IV PRN; -LIDOCAINE 0.5% INJ-PF (5 MG/ML) 50 ML SDV SUBCUT PRN
[2019-06-14] MEDS ORDERED: LACTATED RINGERS 1000 ML IV PRN (10:41)
[2019-06-14] MEDS ORDERED: LIDOCAINE 0.5% INJ-PF (5 MG/ML) 50 ML SDV SUBCUT PRN (10:42)
[2019-06-14] MEDS ORDERED: LIDOCAINE 1%/EPINEPHRINE INJ 20 ML VIAL ONE (11:00)
[2019-06-14] MEDS ORDERED: SODIUM BICARBONATE 4.2% INJ (2.5 MEQ/5 ML) VIAL ONE (11:00)
[2019-06-14] MEDS ORDERED: PROPOFOL INJ 200 MG/20 ML VIAL IV ONE (11:03)
--- NOTE | 2019-06-14 12:21 | Operative Report ---
Operative Report DATE OF SURGERY: 06/14/19 PREOPERATIVE DIAGNOSIS: Basal cell carcinoma of the left lateral thigh with pos itive deep and lateral margins POSTOPERATIVE DIAGNOSIS: Same OPERATION: Excision of basal cell carcinoma from the left lateral thigh with frozen section margin control and reconstruction with a rotation flap SURGEON: LONI SANDOVAL ANESTHESIA: LMAC TISSUE REMOVED OR ALTERED: Basal cell carcinoma COMPLICATIONS: None ESTIMATED BLOOD LOSS: Minimal PROCEDURE: Patient seen and was marked prior to being brought into the operating room. Patient was brought into the operating room and placed on the operating room table in a sloppy lateral position. Patient was then prepped with a Betadine scrub and Betadine solution and draped in a sterile and aseptic manner. The area was then marked. 12 O'clock was marked towards the groin 3 O'clock was marked towards the posterior thigh 6:00 was marked towards the knee 9:00 was marked towards the anterior thigh The area was then anesthetized with 1% lidocaine with epinephrine and bicarbonate for its anesthetic and hemostatic effects. The area was then excised and marked at 12:00. The specimen was sent for frozen section. The results came back that the deep and lateral margins were free. We had considered a primary closure but this would go against the natural relaxed skin tension lines. A primary closure would be too tight and would have increased chance of dehiscence. This will leave more of a scar so we decided to use a rotation flap reconstruction which would camouflage the scar better and take tension off of the closure so that would be less chances of complications. It was thought that by using a rotation flap we would be better able to reconstruct the patient with a tension-free closure. It would also allow us to minimize dogears and give her a smoother reconstruction. A direct primary closure would have been rather tight and also distorting of the surrounding contour of the thigh. With the rotation flap this allowed us to minimize any deformities. Then we went ahead and outlined the flap and anesthetized it. We then incised the flap and developed a flap maintaining the subdermal plexus. Then we undermined 360 to allow for plate like scarring and minimize trap door deformity. Throughout the case hemostasis was achieved with the bipolar. We then sutured the flap into its new position using 4-0 Vicryl for the subcutaneous and deep dermis. Skin was closed with a running subcuticular suture stitch using 4-0 PDS with knots being tied on the outside. And 4-0 PDS suture was used for support and placed in the central area of the incision. We then applied Steri-Strips followed by a light pressure dressing. Patient was then reversed from anesthesia and taken to the [facility] for recovery. The patient tolerated well. There were no complications. Lesion size was approximately 1.4 cm please see pathology for actual size. Portions of this note may be dictated using [employer] voice recognition software. Occasional variations and spelling and vocabulary could be possible and are uni ntentional. Additionally, there is a chance that some errors may not be caught or corrected. Please notify the author of any discrepancies noted or if any statements are unclear. Subjective: No complaints Objective: Vital signs stable afebrile No bleeding Dressing intact Assessment and plan: Doing well. Elevate the operative site. Resume medications. Take antibiotics for 1 day Follow-up Full instructions were given to the patient and family and they understand Portions of this note may be dictated using [employer] voice recognition software. Occasional variations and spelling and vocabulary could be possible and are unintentional. Additionally, there is a chance that some errors may not be caught or corrected. Please notify the offer of any discrepancies noted or if any statements are unclear.
--- NOTE | 2019-06-14 12:23 | Discharge Summary ---
Discharge Summary (SDC) - Discharge Final Diagnosis: Basal cell carcinoma of the left lateral thigh Date of Surgery: 06/14/19 Condition: Good Treatment or Instructions: Leave the top dressing on for 2 days, then removed. Leave the steri-strip tapes on for 5 days, then removal. Then cleaning wound with peroxide and apply Neosporin/bacitracin 3 times per day. Antibiotics for 1 day, then discontinue. Elevate operative area to decrease swelling. Do not strain, or lift heavy objects. Call for excessive bleeding, increased temperature of 101, uncontrolled pain, or excessive nausea or vomiting. You may reach Dr. Escalera through his office at [phone]. In the event of an emergency after hours, then contact Dr. Escalera through [facility]. Return to the office for a postop check on . The time will be scheduled by the nursing staff of [facility] prior to discharge. Please give the patient a copy of their labs and EKG so they can bring this to their PMD. Thank you Portions of this note may be dictated using [employer] voice recognition software. Occasional variations and spelling and vocabulary could be possible and are unintentional. Additionally, there is a chance that some errors may not be caught or corrected. Please notify the offer of any discrepancies noted or if any statements are unclear. Referrals: BRIJESH MCALLISTER MD [Primary Care Provider] - Discharge Diet: As Tolerated Discharge Activity: No Lifting/Push/Pulling Report the Following to Your Physician Immediately: Fever over 101 Degrees, Unusual Bleeding - Keep leg elevated. No bending or straining. No excess exercise.
[2019-06-14 16:31] VITALS: BP 153/74
== END 2019-06-14 14:00 | disposition home or self-care (01) ==
LOC: OROUT 10:09
PROVIDERS: ATTEND Plastic Surgery
DX: C44.719 Basal cell carcinoma of skin of left lower limb, including hip (principal); Z79.899 Other long term (current) drug therapy; I10 Essential (primary) hypertension; I25.10 Atherosclerotic heart disease of native coronary artery without angina pectoris; E07.9 Disorder of thyroid, unspecified
CPT/HCPCS: 88305 ×2; 88331 ×2; 00400; 14020; J0690; J3490 ×2; J2704; 400

== ENCOUNTER 2019-09-20 13:49 | Emergency (ER) | payer MEDICARE, OTHER ==
[2019-09-20] MEDS ORDERED: FENTANYL CITRATE INJ/PF 100 MCG/2 ML AMPUL IV ONE ×2 (13:56→14:39)
[2019-09-20] MEDS ORDERED: ONDANSETRON HCL INJ/PF 4 MG/2 ML SDV IV ONE ×2 (13:56→14:39)
--- NOTE | 2019-09-20 14:05 | ER Document Report ---
ED General - General Stated Complaint: FALL/LEFT ARM PAIN Time Seen by Provider: 09/20/19 13:56 Primary Care Provider: BRIJESH MCALLISTER MD [Primary Care Provider] - Follow up as needed TRAVEL OUTSIDE OF THE [place] IN LAST 30 DAYS: No - HPI Onset: Just prior to arrival Onset/Duration: Sudden Quality of pain: Sharp Severity: Moderate Context: Delightful 89 year old female fell in the locker room in her swimsuit shortly before arrival. She tells me she had just finished swiming. She injured her left upper arm - crepitance and moderate pain - EMS was called and transported her here with 75 mg of Fentanyl adminstered IV with mild improvement of pain. She struck her head when falling and did not lose consciousness. She is clear that she slipped and did not pass out. Right handed. Lives at home alone with caregiver. - Related Data Allergies/Adverse Reactions: Sulfa (Sulfonamide Antibiotics) Allergy (Mild, Verified 12/01/18 08:54) Nausea adhesive tape [Adhesive Tape] Allergy (Verified 12/01/18 08:54) Itching latex Adverse Reaction (Verified 12/01/18 08:54) Red, itching Past Medical History - Social History Smoking Status: Unknown if Ever Smoked Family History: Reviewed & Not Pertinent - Past Medical History Cardiac Medical History: Reports: Hx Hypercholesterolemia, Hx Hypertension Denies: Hx Coronary Artery Disease, Hx Heart Attack Pulmonary Medical History: Reports: Hx Pneumonia Denies: Hx Asthma, Hx Bronchitis, Hx COPD, Hx Tuberculosis Neurological Medical History: Denies: Hx Cerebrovascular Accident, Hx Seizures Endocrine Medical History: Reports: Hx Hypothyroidism Renal/ Medical History: Denies: Hx Kidney Stones, Hx Peritoneal Dialysis Malignancy Medical History: 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 Denies: Hx Hysterectomy, Hx Mastectomy, Hx Open Heart Surgery, Hx Pacemaker - Immunizations Hx Diphtheria, Pertussis, Tetanus Vaccination: Yes Hx Pneumococcal Vaccination: 08/02/13 Review of Systems - Review of Systems Constitutional: No symptoms reported EENT: No symptoms reported Cardiovascular: No symptoms reported Respiratory: No symptoms reported Gastrointestinal: No symptoms reported Genitourinary: No symptoms reported Female Genitourinary: No symptoms reported Musculoskeletal: See HPI, Joint pain, Muscle pain Skin: No symptoms reported Hematologic/Lymphatic: No symptoms reported Neurological/Psychological: No symptoms reported Physical Exam - Vital signs Vitals: Resp Pulse Ox 15 95 09/20/19 14:00 09/20/19 14:00 Interpretation: Normal - General General appearance: Appears well, Alert - HEENT Head: Normocephalic, Other - mild left occ sts. No stepoff.. No: Atraumatic Eyes: Normal Pupils: PERRL - Respiratory Respiratory status: No respiratory distress Chest status: Nontender Breath sounds: Normal Chest palpation: Normal - Cardiovascular Rhythm: Regular Heart sounds: Normal auscultation Murmur: No - Abdominal Inspection: Normal Distension: No distension Bowel sounds: Normal Tenderness: Nontender Organomegaly: No organomegaly - Back Back: Normal, Nontender - Extremities General upper extremity: Tender - Left shoulder ttp with some crepitance, Normal color, Normal ROM, Normal temperature General lower extremity: Normal inspection, Nontender, Normal color, Normal ROM, Normal temperature, Normal weight bearing. No: Ijeoma's sign - Neurological Neuro grossly intact: Yes Cognition: Normal Orientation: AAOx4 [place] Coma Scale Eye Opening: Spontaneous [place] Coma Scale Verbal: Oriented [place] Coma Scale Motor: Obeys Commands [place] Coma Scale Total: 15 Speech: Normal Motor strength normal: LUE, RUE, LLE, RLE Sensory: Normal - Psychological Associated symptoms: Normal affect, Normal mood - Skin Skin Temperature: Warm Skin Moisture: Dry Skin Color: Normal Course - Re-evaluation Re-evalutation: 09/20/19 15:12 MDM 89 year old with left transverse surgical neck fx. No other serious injuries. She has caregivers at home. She will be at increased risk for fall and we have discussed this. I have called Dr. Hernandez for follow up. He will graciously see her in the office tomorrow after 1 pm. - Vital Signs Vital signs: Temp Pulse Resp BP Pulse Ox 13 149/75 H 96 09/20/19 16:01 09/20/19 16:01 09/20/19 16:01 - Diagnostic Test Radiology reviewed: Image reviewed, Reports reviewed Discharge - Discharge Clinical Impression: Humerus surgical neck fracture Qualifiers: Encounter type: initial encounter Fracture type: closed Fracture morphology: unspecified fracture morphology Fracture alignment: displaced Laterality: left Qualified Code(s): S42.212A - Unspecified displaced fracture of surgical neck of left humerus, initial encounter for closed fracture Contusion of scalp Qualifiers: Encounter type: initial encounter Qualified Code(s): S00.03XA - Contusion of scalp, initial encounter Condition: Fair Disposition: HOME, SELF-CARE Instructions: Fracture Proximal Humerus, Sling as Treatment ([facility]), Sling to be Used ([facility]) Additional Instructions: Be careful with walking as you are at increased risk for a fall. Wear your sling. See Dr. Hernandez in follow up. Go to his office tomorrow at 1:10 pm. Take the medicine as needed for severe pain. It may constipate you. If you are at all prone to constipation take metamucil or citrucel. Prescriptions: Hydrocodone Bit/Acetaminophen [Hydrocodon-Acetaminophen 5-325] 1 each PO TID #12 tablet Referrals: BRIJESH MCALLISTER MD [Primary Care Provider] - Follow up as needed
--- NOTE | 2019-09-20 14:42 | RADIOLOGY REPORT (SQ) ---
EXAM DESCRIPTION: CT CERVICAL SPINE WITHOUT COMPLETED DATE/TIME: 09/20/2019 2:32 pm REASON FOR STUDY: fall/ head injury/ left shoulder deformity COMPARISON: None. TECHNIQUE: Axial images acquired through the cervical spine without intravenous contrast. Images re viewed with lung, soft tissue and bone windows. Reconstructed coronal and sagittal MPR images review ed. Images stored on PACS. All CT scanners at this facility use dose modulation, iterative reconstruction, and/or weight based d osing when appropriate to reduce radiation dose to as low as reasonably achievable (ALARA). [facility]: Dose Right [facility]: CareDose [facility]: Dose Right [facility]: Teradose 4D [facility]: [employer] RADIATION DOSE: CT Rad equipment meets quality standard of care and radiation dose reduction techniq ues were employed. CTDIvol: 18.7 mGy. DLP: 404 mGy-cm. mGy. LIMITATIONS: None. FINDINGS: ALIGNMENT: Anatomic. MINERALIZATION: Osteopenia pre VERTEBRAL BODIES: No fractures or dislocation. DISCS: Mild multilevel disc space height loss and osteophytosis. FACETS, LATERAL MASSES, POSTERIOR ELEMENTS: No fractures. No dislocation. No acute findings. HARDWARE: None in the spine. VISUALIZED RIBS: No fractures. LUNG APICES AND SOFT TISSUES: No significant or acute findings. OTHER: Right lobe thyroid nodule containing internal calcification. IMPRESSION: No fracture or static subluxation of the cervical spine. Osteopenia. TECHNICAL DOCUMENTATION: JOB ID: [id number] Quality ID # [id number]: Final reports with documentation of one or more dose reduction techniques (e.g., Au tomated exposure control, adjustment of the mA and/or kV according to patient size, use of iterative reconstruction technique) 2010 [employer]- All Rights Reserved Reading location - IP/workstation name: [email or web address]
--- NOTE | 2019-09-20 14:44 | RADIOLOGY REPORT (SQ) ---
EXAM DESCRIPTION: CT HEAD WITHOUT COMPLETED DATE/TIME: 09/20/2019 2:32 pm REASON FOR STUDY: fall/ injury COMPARISON: 09/14/2016 TECHNIQUE: Axial images acquired through the brain without intravenous contrast. Images reviewed wi th bone, brain and subdural windows. Additional sagittal and coronal reconstructions were generated. Images stored on PACS. All CT scanners at this facility use dose modulation, iterative reconstruction, and/or weight based d osing when appropriate to reduce radiation dose to as low as reasonably achievable (ALARA). [facility]: Dose Right [facility]: CareDose [facility]: Dose Right [facility]: Teradose 4D [facility]: Smart [employer] RADIATION DOSE: CT Rad equipment meets quality standard of care and radiation dose reduction techniq ues were employed. CTDIvol: 53.2 mGy. DLP: 1017 mGy-cm. mGy. LIMITATIONS: None. FINDINGS: VENTRICLES: Normal size and contour. CEREBRUM: No masses. No hemorrhage. No midline shift. No evidence for acute infarction. Normal gra y/white matter differentiation. No areas of low density in the white matter. CEREBELLUM: No masses. No hemorrhage. No alteration of density. No evidence for acute infarction. EXTRAAXIAL SPACES: No fluid collections. No masses. ORBITS AND GLOBE: No intra- or extraconal masses. Normal contour of globe without masses. CALVARIUM: No fracture. PARANASAL SINUSES: No fluid or mucosal thickening. SOFT TISSUES: No mass or hematoma. OTHER: No other significant finding. IMPRESSION: No acute intracranial pathology. EVIDENCE OF ACUTE STROKE: NO. COMMENT: Quality ID # [id number]: Final reports with documentation of one or more dose reduction techniques (e.g., Automated exposure control, adjustment of the mA and/or kV according to patient size, use of iterative reconstruction technique) TECHNICAL DOCUMENTATION: JOB ID: [id number] [employer]- All Rights Reserved Reading location - IP/workstation name: [email or web address]
--- NOTE | 2019-09-20 14:53 | RADIOLOGY REPORT (SQ) ---
EXAM DESCRIPTION: HUMERUS LEFT COMPLETED DATE/TIME: 09/20/2019 2:43 pm REASON FOR STUDY: fall COMPARISON: None. NUMBER OF VIEWS: Two views. TECHNIQUE: Two radiographic images were acquired of the left humerus to include elbow and shoulder i n at least one projection. LIMITATIONS: None. FINDINGS: MINERALIZATION: Decreased. BONES: Comminuted surgical neck fracture of the proximal left humerus. No significant displacement o r angulation on the limited projections. SOFT TISSUES: No obvious swelling or foreign body. OTHER: No other significant finding. IMPRESSION: 1. Comminuted left surgical neck humeral fracture. 2. Decreased osseous mineralization. TECHNICAL DOCUMENTATION: JOB ID: [id number] [employer]- All Rights Reserved Reading location - IP/workstation name: [email or web address]
--- NOTE | 2019-09-20 14:54 | RADIOLOGY REPORT (SQ) ---
EXAM DESCRIPTION: SHOULDER LEFT 2 OR MORE VIEWS COMPLETED DATE/TIME: 09/20/2019 2:43 pm REASON FOR STUDY: fall/ injury COMPARISON: None. NUMBER OF VIEWS: Two views. TECHNIQUE: Internal and external rotation images acquired of the left shoulder. LIMITATIONS: None. FINDINGS: MINERALIZATION: Decreased. BONES: Comminuted surgical neck left humeral fracture. Minimal lateral displacement of the distal fr acture fragment. JOINTS: No dislocation. VISUALIZED LUNGS AND RIBS: Chronic interstitial changes. No pneumothorax. No rib fracture identifie d. SOFT TISSUES: No radiopaque foreign body. OTHER: No other significant finding. IMPRESSION: Comminuted surgical neck left humeral fracture. TECHNICAL DOCUMENTATION: JOB ID: [id number] [employer]- All Rights Reserved Reading location - IP/workstation name: [email or web address]
[2019-09-20 16:38] VITALS: BP 149/75
== END 2019-09-20 16:38 | disposition home or self-care (01) ==
LOC: ER 13:49
DX: S42.212A Unspecified displaced fracture of surgical neck of left humerus, initial encounter for closed fracture (principal); S00.03XA Contusion of scalp, initial encounter; W18.2XXA Fall in (into) shower or empty bathtub, initial encounter; Y92.39 Other specified sports and athletic area as the place of occurrence of the external cause; I10 Essential (primary) hypertension; Z88.2 Allergy status to sulfonamides; Z91.048 Other nonmedicinal substance allergy status
CPT/HCPCS: 73060; 73030; 70450; 72125; L3650; J3010; J2405; 96374; 96375; 96376; 99284

== ENCOUNTER 2019-10-01 08:56 | Observation (INO) | payer MEDICARE, OTHER ==
--- NOTE | 2019-10-01 09:53 | RADIOLOGY REPORT (SQ) ---
EXAM DESCRIPTION: FOOT LEFT COMPLETE COMPLETED DATE/TIME: 10/01/2019 9:39 am REASON FOR STUDY: bone tenderness/ fall COMPARISON: Left ankle films same date NUMBER OF VIEWS: Three views. TECHNIQUE: AP, lateral and oblique radiographic images acquired of the left foot. LIMITATIONS: None. FINDINGS: MINERALIZATION: Osteoporotic BONES: Acute hairline nondisplaced transverse fracture, base left 5th metatarsal extending into the 5 th tarsometatarsal joint. This is best shown on AP view marked with an arrow. 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 No foreign body. OTHER: No other significant finding. IMPRESSION: Hairline acute non displaced transverse fracture base 5th metatarsal TECHNICAL DOCUMENTATION: JOB ID: [id number] [employer]- All Rights Reserved Reading location - IP/workstation name: [email or web address]
--- NOTE | 2019-10-01 09:59 | RADIOLOGY REPORT (SQ) ---
EXAM DESCRIPTION: ANKLE LEFT COMPLETE COMPLETED DATE/TIME: 10/01/2019 9:39 am REASON FOR STUDY: bone tenderness/ fall COMPARISON: Left ankle films same date NUMBER OF VIEWS: Three views. TECHNIQUE: AP, lateral, and oblique radiographic images acquired of the left ankle. LIMITATIONS: None. FINDINGS: MINERALIZATION: Osteoporotic BONES: Acute transverse fracture medial malleolus extending into the ankle mortise. Acute avulsion fragment distal tip left fibula Transverse acute nondisplaced fracture base of the 5th metatarsal seen on foot films is not as well s een on ankle films JOINTS: There is a small tibiotalar joint effusion. No disruption of the ankle mortise SOFT TISSUES: No soft tissue swelling. No foreign body. OTHER: No other significant finding. IMPRESSION: Acute fractures of the medial malleolus extending into the ankle mortise, and along the distal tip of the fibula TECHNICAL DOCUMENTATION: JOB ID: [id number] [employer]- All Rights Reserved Reading location - IP/workstation name: [email or web address]
--- NOTE | 2019-10-01 10:40 | ER Document Report ---
ED General - General Chief Complaint: Fall Stated Complaint: FALL/FOOT PAIN Time Seen by Provider: 10/01/19 10:01 Primary Care Provider: BRIJESH MCALLISTER MD [Primary Care Provider] - Follow up as needed TRAVEL OUTSIDE OF THE [place] IN LAST 30 DAYS: No - HPI Notes: Patient is an 89-year-old female with a history of hypertension who presents complaining of left ankle and foot pain status post fall last night at 10 PM. Patient was accompanied by her daughter at the time when he tried to put on her pants when she fell to her side. Patient states that she did hit the right forehead/temporal area on the floor but did not lose conscious. She did scrape her right forearm on her way down causing a skin tear. She has been able to eat and drink without difficulty. She is still able to urinate, but cannot stand up. She is not on any blood thinning medications. She is otherwise acting and behaving to her baseline per daughter. Patient otherwise lives alone and had a fall 11 days ago fracturing her left humerus which she is in a sling for currently. Denies any headache, fever, neck pain, changes in vision/speech/mentation/hearing, URI, sore throat, chest pain, palpitations, syncope, cough, shortness of breath, wheeze, dyspnea, abdominal pain, nausea/vomiting/diarrhea, urinary retention, dysuria, hematuria, or rash. - Related Data Allergies/Adverse Reactions: Sulfa (Sulfonamide Antibiotics) Allergy (Mild, Verified 10/01/19 09:14) Nausea adhesive tape [Adhesive Tape] Allergy (Verified 10/01/19 09:14) Itching latex Adverse Reaction (Verified 10/01/19 09:14) Red, itching Past Medical History - Social History Smoking Status: Never Smoker Family History: Reviewed & Not Pertinent Patient has suicidal ideation: No Patient has homicidal ideation: No - Past Medical History Cardiac Medical History: Reports: Hx Hypercholesterolemia, Hx Hypertension Denies: Hx Coronary Artery Disease, Hx Heart Attack Pulmonary Medical History: Reports: Hx Pneumonia Denies: Hx Asthma, Hx Bronchitis, Hx COPD, Hx Tuberculosis Neurological Medical History: Denies: Hx Cerebrovascular Accident, Hx Seizures Endocrine Medical History: Reports: Hx Hypothyroidism Renal/ Medical History: Denies: Hx Kidney Stones, Hx Peritoneal Dialysis Malignancy Medical History: 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 Denies: Hx Hysterectomy, Hx Mastectomy, Hx Open Heart Surgery, Hx Pacemaker - Immunizations Hx Diphtheria, Pertussis, Tetanus Vaccination: Yes Hx Pneumococcal Vaccination: 08/02/13 Review of Systems - Review of Systems -: Yes All other systems reviewed and negative Physical Exam - Vital signs Vitals: Temp Pulse Resp BP Pulse Ox 97.4 F 54 L 18 133/41 H 94 10/01/19 09:05 10/01/19 09:05 10/01/19 09:05 10/01/19 09:05 10/01/19 09:05 - Notes Notes: PHYSICAL EXAMINATION: GENERAL: Well-appearing, well-nourished and in no acute distress. A&Ox4. Answers questions appropriately. HEAD: normocephalic. No castillo sign. + very small area of ecchymosis rt frontal/temporal area with tenderness associated. No bogginess. EYES: Pupils equal round and reactive to light, extraocular movements intact, sclera anicteric, conjunctiva are normal. No raccoon eyes/entrapment ENT: EAC clear b/l. TM's intact b/l without erythema, fluid, or perforation. Nares patent and without discharge. oropharynx clear without exudates. No tonsilar hypertrophy or erythema. Moist mucous membranes. No sinus tenderness. No hemotympanum/CSF discharge. NECK: Normal range of motion, supple without lymphadenopathy. No rigidity. No midline tenderness. Chest: No flail chest. equal rise/fall. Non-tender LUNGS: Breath sounds clear to auscultation bilaterally and equal. No wheezes rales or rhonchi. HEART: Regular rate and rhythm without murmurs, rubs, gallops. ABDOMEN: Soft, nontender, nondistended abdomen. No guarding, no rebound. Normal bowel sounds present. No CVA tenderness bilaterally. Musculoskeletal: RUE/RLE: FROM to passive/active. Strength 5+/5. No deficits noted. No bony tenderness of extremities. + superficial skin tear rt forearm. LUE: in sling otherwise nontender aside from prev fracture site. LLE: + mild swelling to ankle b/l. + tenderness to b/l ankle and to lateral prox foot to palp. N/V intact distal. Back: FROM to passive/active. Strength 5+/5. No vertebral point tenderness, stepoffs, or deformities. No other bony tenderness or ecchymosis. SLR negative b/l. Extremities: No cyanosis, clubbing, or edema b/l. Peripheral pulses 2+. Capillary refill less than 2 seconds. NEUROLOGICAL: NIH 0. GCS 15. Cranial nerves grossly intact. Normal speech, normal gait. Normal sensory, motor exams. Reflexes 2+ b/l. LENNIE's negative. Pronator drift negative. Heel/rice, finger/nose wnl. PSYCH: Normal mood, normal affect. SKIN: see above. Course - Re-evaluation Re-evalutation: 10/01/19 12:45 Patient is an afebrile, well-hydrated, 89-year-old female who presents now with ambulatory dysfunction secondary to left ankle fracture and left lateral foot fracture with recent fracture of her left humerus. Patient does live alone and is 89 years old. CBC and CMP otherwise unremarkable. Patient is nontoxic- appearing and is tolerating p.o. without difficulty. CT of the head and cervical spine were unremarkable. I did call the hospitalist, Dr. Gupta, who will accept patient for admit to the medical floor. Patient is in agreement with this plan. - Vital Signs Vital signs: Temp Pulse Resp BP Pulse Ox 97.4 F 54 L 18 133/41 H 94 10/01/19 09:05 10/01/19 09:05 10/01/19 09:05 10/01/19 09:05 10/01/19 09:05 - Laboratory Result Diagrams: 10/01/19 11:19 10/01/19 11:19 Laboratory results interpreted by me: 10/01/19 10/01/19 11:19 11:19 WBC 14.1 H RBC 3.63 L Hgb 11.1 L Hct 32.0 L Seg Neuts % (Manual) 81 H Lymphocytes % (Manual) 9 L Metamyelocytes % 2 H Abs Neuts (Manual) 11.7 H Sodium 130.7 L Chloride 96 L Creatinine 0.51 L AST 38 H Alkaline Phosphatase 131 H Discharge - Discharge Clinical Impression: Ambulatory dysfunction Closed left ankle fracture Qualifiers: Encounter type: initial encounter Qualified Code(s): S82.892A - Other fracture of left lower leg, initial encounter for closed fracture Fracture of fifth metatarsal bone of left foot Qualifiers: Encounter type: initial encounter Fracture type: closed Fracture alignment: nondisplaced Qualified Code(s): S92.355A - Nondisplaced fracture of fifth metatarsal bone, left foot, initial encounter for closed fracture Condition: Stable Disposition: ADMITTED OBSERVATION Admitting Provider: Alonso (Hospitalist) Unit Admitted: Medical Floor Referrals: BRIJESH MCALLISTER MD [Primary Care Provider] - Follow up as needed
--- NOTE | 2019-10-01 11:26 | RADIOLOGY REPORT (SQ) ---
EXAM DESCRIPTION: CT HEAD WITHOUT COMPLETED DATE/TIME: 10/01/2019 11:07 am REASON FOR STUDY: fall, head injury COMPARISON: CT brain 09/20/2019 TECHNIQUE: Axial images acquired through the brain without intravenous contrast. Images reviewed wi th bone, brain and subdural windows. Additional sagittal and coronal reconstructions were generated. Images stored on PACS. All CT scanners at this facility use dose modulation, iterative reconstruction, and/or weight based d osing when appropriate to reduce radiation dose to as low as reasonably achievable (ALARA). [facility]: Dose Right [facility]: CareDose [facility]: Dose Right [facility]: Teradose 4D [facility]: [employer] RADIATION DOSE: CT Rad equipment meets quality standard of care and radiation dose reduction techniq ues were employed. CTDIvol: 53.2 mGy. DLP: 964 mGy-cm. mGy. LIMITATIONS: None. FINDINGS: VENTRICLES: Normal size and contour. CEREBRUM: No masses. No hemorrhage. No midline shift. No evidence for acute infarction. Normal gra y/white matter differentiation. No areas of low density in the white matter. CEREBELLUM: No masses. No hemorrhage. No alteration of density. No evidence for acute infarction. EXTRAAXIAL SPACES: No fluid collections. No masses. ORBITS AND GLOBE: No intra- or extraconal masses. Normal contour of globe without masses. CALVARIUM: No fracture. PARANASAL SINUSES: No fluid or mucosal thickening. SOFT TISSUES: No mass or hematoma. OTHER: No other significant finding. IMPRESSION: NORMAL BRAIN CT WITHOUT CONTRAST. EVIDENCE OF ACUTE STROKE: NO. COMMENT: Quality ID # [id number]: Final reports with documentation of one or more dose reduction techniques (e.g., Automated exposure control, adjustment of the mA and/or kV according to patient size, use of iterative reconstruction technique) TECHNICAL DOCUMENTATION: JOB ID: [id number] [employer]- All Rights Reserved Reading location - IP/workstation name: [email or web address]
--- NOTE | 2019-10-01 11:29 | RADIOLOGY REPORT (SQ) ---
EXAM DESCRIPTION: CT CERVICAL SPINE WITHOUT COMPLETED DATE/TIME: 10/01/2019 11:07 am REASON FOR STUDY: fall, distracting injury present COMPARISON: CT cervical spine 09/20/2019 TECHNIQUE: Axial images acquired through the cervical spine without intravenous contrast. Images re viewed with lung, soft tissue and bone windows. Reconstructed coronal and sagittal MPR images review ed. Images stored on PACS. All CT scanners at this facility use dose modulation, iterative reconstruction, and/or weight based d osing when appropriate to reduce radiation dose to as low as reasonably achievable (ALARA). [facility]: Dose Right [facility]: CareDose [facility]: Dose Right [facility]: Teradose 4D [facility]: [employer] RADIATION DOSE: CT Rad equipment meets quality standard of care and radiation dose reduction techniq ues were employed. CTDIvol: 17.5 mGy. DLP: 390 mGy-cm. mGy. LIMITATIONS: None. FINDINGS: ALIGNMENT: Anatomic. MINERALIZATION: Age-appropriate osteopenia VERTEBRAL BODIES: No fractures or dislocation. DISCS: No significant disc disease. FACETS, LATERAL MASSES, POSTERIOR ELEMENTS: No fractures. No dislocation. No acute findings. HARDWARE: None in the spine. VISUALIZED RIBS: No fractures. LUNG APICES AND SOFT TISSUES: Stable 2.5 x 1.8 cm right lower pole thyroid nodule OTHER: No other significant finding. IMPRESSION: No acute findings TECHNICAL DOCUMENTATION: JOB ID: [id number] Quality ID # [id number]: Final reports with documentation of one or more dose reduction techniques (e.g., Au tomated exposure control, adjustment of the mA and/or kV according to patient size, use of iterative reconstruction technique) 2010 [employer]- All Rights Reserved Reading location - IP/workstation name: [email or web address]
[2019-10-01 11:31] LABS: HEMOGLOBIN 11.1 g/dL (12.0-15.5); MEAN CORPUSCULAR HEMOGLOBIN 30.5 pg (27.0-33.4); MEAN CORPUSCULAR HGB CONC 34.6 g/dL (32.0-36.0); MEAN CORPUSCULAR VOLUME 88 fl (80-97); PLATELET COUNT 373 10^3/uL (150-450); RED BLOOD COUNT 3.63 10^6/uL (3.72-5.28); RED CELL DISTRIBUTION WIDTH 13.6 % (11.5-14.0); WHITE BLOOD COUNT 14.1 10^3/uL (4.0-10.5)
[2019-10-01 11:56] LABS: ABSOLUTE LYMPHOCYTES# (MANUAL) 1.3 10^3/uL (0.5-4.7); ABSOLUTE MONOCYTES # (MANUAL) 1.1 10^3/uL (0.1-1.4); ALBUMIN 3.5 g/dL (3.5-5.0); ALKALINE PHOSPHATASE 131 U/L (38-126); ANION GAP 11 (5-19); ASPARTATE AMINO TRANSFERASE 38 U/L (14-36); BASOPHILS % (MANUAL) 0 % (0-2); BILIRUBIN,DIRECT 0.2 mg/dL (0.0-0.4); BILIRUBIN,TOTAL 0.7 mg/dL (0.2-1.3); BLOOD UREA NITROGEN 12 mg/dL (7-20); CALCIUM 8.9 mg/dL (8.4-10.2); CARBON DIOXIDE 24 mmol/L (22-30); CHLORIDE 96 mmol/L (98-107); EOSINOPHILS % (MANUAL) 0 % (0-6); GLUCOSE 96 mg/dL (75-110); LYMPHOCYTES % (MANUAL) 9 % (13-45); METAMYELOCYTES % (MANUAL) 2 % (0-1); MONOCYTES % (MANUAL) 8 % (3-13); POTASSIUM 4.8 mmol/L (3.6-5.0); SEGMENTED NEUTROPHILS % (MAN) 81 % (42-78); TOTAL CELLS COUNTED 100; TOTAL PROTEIN 6.4 g/dL (6.3-8.2)
[2019-10-01 11:57] LABS: ANISOCYTOSIS SLIGHT; PLATELET COMMENT ADEQUATE; SMUDGE CELLS PRESENT
[2019-10-01] MEDS ORDERED: IPRATROPIUM/ALBUTEROL 0.5-2.5 MG/3 ML AMPUL NEB PRN (13:04)
[2019-10-01] MEDS ORDERED: PROMETHAZINE HCL INJ 25 MG/1 ML VIAL IV PRN (13:04)
[2019-10-01] MEDS ORDERED: TEMAZEPAM 7.5 MG CAPSULE PO PRN (13:04)
[2019-10-01] MEDS ORDERED: OXYCODONE-ACETAMINOPHEN 5-325 MG TABLET PO PRN (13:04)
[2019-10-01] MEDS ORDERED: ONDANSETRON HCL INJ/PF 4 MG/2 ML SDV IV PRN (13:04)
[2019-10-01] MEDS ORDERED: ACETAMINOPHEN 325 MG TABLET PO PRN (13:04)
[2019-10-01] MEDS: AMOXICILLIN TRIHYDRATE 500 MG CAPSULE PO SCH ×2 (15:04→21:36)
[2019-10-01] MEDS: HEPARIN SOD (PORCINE) 5,000 UNIT/ML 1 ML VIAL SUBCUT SCH ×2 (15:05→21:36)
--- NOTE | 2019-10-01 15:36 | PDOC H&P ---
History of Present Illness Admission Date/PCP: 10/01/19 12:51 BRIJESH MCALLISTER MD History of Present Illness: AFSHAN CHAN is a 89 year old female past medical history of hypertension, depression, hypothyroidism, who was recently seen in the ED for left humeral fracture and discharged from ED, presenting to ED after sustaining a mechanical fall at home. Last night around 10 PM while trying to put on her pants with the help of her daughter she fell to the right side hitting her forehead and sustaining a laceration of the right elbow, she also noted left foot and ankle pain and unable to bear any weight on it. Patient denies having any palpitation, lightheadedness, chest pain prior to fall, did not lose consciousness, and did not have any convulsions. Patient denies any headache, vision changes, any focal numbness or tingling, shortness of breath, chest pain, palpitation, lightheadedness, nausea, vomiting, diarrhea, constipation or any urinary symptoms. Patient is p.o. tolerant, having normal bowel and bladder movements. 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 Denies: Hiatal Hernia Musculoskeltal Medical History: Denies: Arthritis Hematology: Denies: Anemia, Sickle Cell Disease Past Surgical History Past Surgical History: Reports: Appendectomy, Cholecystectomy, Tonsillectomy Denies: Amputation, Hysterectomy, Mastectomy, Pacemaker Social History Smoking Status: Never Smoker Frequency of Alcohol Use: None Hx Recreational Drug Use: No - Advance Directive Resuscitation Status: Full Code Family History Family History: Reviewed & Not Pertinent Parental Family History Reviewed: Yes Children Family History Reviewed: Yes Sibling(s) Family History Reviewed.: Yes Medication/Allergy Home Medications: Amlodipine Besylate [Norvasc 5 mg Tablet] 5 mg PO DAILY@1900 10/01/19 Cetirizine HCl [Zyrtec] 10 mg PO DAILYP PRN 10/01/19 Levothyroxine Sodium [Synthroid 50 Mcg Tablet] 50 mcg PO DAILY@0600 10/01/19 Losartan Potassium 100 mg PO QAM@0900 10/01/19 Omeprazole 40 mg PO DAILY@1600 10/01/19 Pravastatin Sodium [Pravachol] 10 mg PO QPM@1900 10/01/19 Promethazine HCl 12.5 mg PO Q6HP PRN 10/01/19 Sertraline HCl 100 mg PO DAILY@0900 10/01/19 Allergies/Adverse Reactions: Sulfa (Sulfonamide Antibiotics) Allergy (Mild, Verified 10/01/19 09:14) Nausea adhesive tape [Adhesive Tape] Allergy (Verified 10/01/19 09:14) Itching latex Adverse Reaction (Verified 10/01/19 09:14) Red, itching Review of Systems Constitutional: ABSENT: chills, fever(s), headache(s), weight gain, weight loss Cardiovascular: ABSENT: chest pain, dyspnea on exertion, edema, orthropnea, palpitations Respiratory: ABSENT: cough, hemoptysis Gastrointestinal: ABSENT: abdominal pain, constipation, diarrhea, hematemesis, hematochezia, nausea, vomiting Musculoskeletal: PRESENT: as per HPI Integumentary: PRESENT: as per HPI. ABSENT: rash, wounds Neurological: ABSENT: abnormal gait, abnormal speech, confusion, dizziness, focal weakness, syncope Physical Exam Vital Signs: Temp Pulse Resp BP Pulse Ox 98.5 F 76 16 159/68 H 95 10/01/19 13:18 10/01/19 13:18 10/01/19 13:18 10/01/19 13:18 10/01/19 13:18 Intake & Output 09/30/19 10/01/19 10/02/19 06:59 06:59 06:59 Weight 68.039 kg General appearance: PRESENT: no acute distress, well-developed, well-nourished Head exam: PRESENT: other - Right orbit small bruise, no skin compromise. Neck exam: ABSENT: carotid bruit, JVD, lymphadenopathy, thyromegaly Respiratory exam: PRESENT: clear to auscultation verónica. ABSENT: rales, rhonchi, wheezes Cardiovascular exam: PRESENT: RRR. ABSENT: diastolic murmur, rubs, systolic murmur GI/Abdominal exam: PRESENT: normal bowel sounds, soft. ABSENT: distended, guarding, mass, organolmegaly, rebound, tenderness Extremities exam: PRESENT: full ROM, tenderness - Right elbow linear epidermal laceration, no bleeding, no sign of infection, right upper extremity neurova scularly intact.. ABSENT: calf tenderness, clubbing, pedal edema Musculoskeletal exam: PRESENT: other - Left foot dressing in place. Pulses are palpable. Neurovascularly intact. Neurological exam: PRESENT: alert, awake, oriented to person, oriented to place, oriented to time, oriented to situation, CN II-XII grossly intact. ABSENT: motor sensory deficit Results Laboratory Results: 10/01/19 11:19 10/01/19 11:19 10/01/19 10/01/19 11: 11:19 WBC 14.1 H RBC 3.63 L Hgb 11.1 L Hct 32.0 L MCV 88 MCH 30.5 MCHC 34.6 RDW 13.6 Plt Count 373 Seg Neutrophils % Not Reportable Sodium 130.7 L Potassium 4.8 Chloride 96 L Carbon Dioxide 24 Anion Gap 11 BUN 12 Creatinine 0.51 L Est GFR ( Amer) > 60 Glucose 96 Calcium 8.9 Total Bilirubin 0.7 AST 38 H Alkaline Phosphatase 131 H Total Protein 6.4 Albumin 3.5 Impressions: Ankle X-Ray 10/01/19 09:20 IMPRESSION: Acute fractures of the medial malleolus extending into the ankle mortise, and along the distal tip of the fibula Foot X-Ray 10/01/19 09:20 IMPRESSION: Hairline acute non displaced transverse fracture base 5th metatarsal Head CT 10/01/19 10:33 IMPRESSION: NORMAL BRAIN CT WITHOUT CONTRAST. EVIDENCE OF ACUTE STROKE: NO. Cervical Spine CT 10/01/19 10:36 IMPRESSION: No acute findings Assessment and Plan - Diagnosis (1) Fall Qualifiers: Encounter type: initial encounter Qualified Code(s): W19.XXXA - Unspecified fall, initial encounter Is this a current diagnosis for this admission?: Yes Plan: Mechanical fall. Negative for any focal neurological symptoms. Alert oriented x4. CT head and neck negative for any acute abnormalities. Implement fall, seizure precautions. Supportive measures. PT OT. Patient lives alone by herself. Given her left humeral and left foot fractures and recurrent falls patient may benefit from being discharged to short-term rehab. I have discussed this with patient and she is agreeable. (2) Fracture of fifth metatarsal bone of left foot Qualifiers: Encounter type: initial encounter Fracture type: closed Fracture alignment: nondisplaced Qualified Code(s): S92.355A - Nondisplaced fracture of fifth metatarsal bone, left foot, initial encounter for closed fracture Is this a current diagnosis for this admission?: Yes Plan: Non-comminuted. Neurovascularly intact. Consult orthopedic surgery for further recommendation. (3) GERD (gastroesophageal reflux disease) Qualifiers: Esophagitis presence: esophagitis presence not specified Qualified Code(s): K21.9 - Gastro-esophageal reflux disease without esophagitis Is this a current diagnosis for this admission?: Yes Plan: Takes omeprazole at home. Restart PPI. Outpatient gastroenterology follow-up. (4) Hypercholesterolemia Is this a current diagnosis for this admission?: Yes Plan: Restart home meds. (5) Hypothyroid Is this a current diagnosis for this admission?: Yes Plan: Takes levothyroxine at home. Restart home meds. Outpatient PCP follow-up. (6) Hypertension Is this a current diagnosis for this admission?: Yes Plan: Normotensive. Euvolemic. Takes amlodipine 5 mg at home. Restart home meds. Adjust meds as needed. PRN hydralazine and metoprolol.
[2019-10-01] MEDS: AMLODIPINE BESYLATE 5 MG TABLET PO SCH (18:07)
[2019-10-01] MEDS: PANTOPRAZOLE SODIUM 40 MG TABLET.DR PO SCH (18:07)
[2019-10-01] MEDS: DOCUSATE SODIUM 100 MG CAPSULE PO SCH (18:08)
--- NOTE | 2019-10-01 22:54 | PDOC CONSULTATION ---
Consultation Consult Date: 10/01/19 Provider Consulted: JHONNY CRUZ JR History of Present Illness Admission Date/PCP: 10/01/19 12:51 BRIJESH MCALLISTER MD Patient complains of: left ankle pain. History of Present Illness: AFSHAN CHAN is a 89 year old female. She initially fell and hurt her left shoulder about 2 weeks ago resulting in a left proximal humerus fracture. Since that time she has been treated in a sling and doing well. She fell yesterday when trying to put on her pants and fell, twisting her left ankle. She was seen in the ED and placed in a posterior splint. She has bee admitted for pain management, and disposition planning. She describes pain as a 8/10 with motion, 4/10 at baseline, aching, improved with pain medication. She denies associated injury, denies head injury or LOC. 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 Denies: Hiatal Hernia Musculoskeltal Medical History: Denies: Arthritis Psychiatric Medical History: Denies: Depression Hematology: Denies: Anemia, Sickle Cell Disease Past Surgical History Past Surgical History: Reports: Appendectomy, Cholecystectomy, Tonsillectomy Denies: Amputation, Hysterectomy, Mastectomy, Pacemaker Social History Smoking Status: Never Smoker Electronic Cigarette use?: No Frequency of Alcohol Use: None Hx Recreational Drug Use: No Drugs: None Hx Prescription Drug Abuse: No - Advance Directive Resuscitation Status: Full Code Family History Family History: Reviewed & Not Pertinent Parental Family History Reviewed: No Children Family History Reviewed: NA Sibling(s) Family History Reviewed.: NA Medication/Allergy Home Medications: Amlodipine Besylate [Norvasc 5 mg Tablet] 5 mg PO DAILY@1900 10/01/19 Cetirizine HCl [Zyrtec] 10 mg PO DAILYP PRN 10/01/19 Levothyroxine Sodium [Synthroid 50 Mcg Tablet] 50 mcg PO DAILY@0600 10/01/19 Losartan Potassium 100 mg PO QAM@0900 10/01/19 Omeprazole 40 mg PO DAILY@1600 10/01/19 Pravastatin Sodium [Pravachol] 10 mg PO QPM@1900 10/01/19 Promethazine HCl 12.5 mg PO Q6HP PRN 10/01/19 Sertraline HCl 100 mg PO DAILY@0900 10/01/19 Allergies/Adverse Reactions: Sulfa (Sulfonamide Antibiotics) Allergy (Mild, Verified 10/01/19 09:14) Nausea adhesive tape [Adhesive Tape] Allergy (Verified 10/01/19 09:14) Itching latex Adverse Reaction (Verified 10/01/19 09:14) Red, itching Review of Systems Review of Systems: Constitutional: ABSENT: anorexia, chills, night sweats Cardiovascular: ABSENT: chest pain Respiratory: ABSENT: dyspnea Gastrointestinal: ABSENT: vomiting Genitourinary: ABSENT: dysuria Integumentary: ABSENT: rash Neurological: ABSENT: confusion, memory loss, numbness Psychiatric: ABSENT: hallucinations Hematologic/Lymphatic: ABSENT: easy bleeding Physical Exam Vital Signs: Temp Pulse Resp BP Pulse Ox 98.9 F 73 16 136/53 H 95 10/01/19 19:41 10/01/19 19:41 10/01/19 19:41 10/01/19 19:41 10/01/19 19:41 Intake & Output 09/30/19 10/01/19 10/02/19 06:59 06:59 06:59 Weight 68.039 kg Physical Exam: General appearance: PRESENT: no acute distress, cooperative, well-nourished Head exam: PRESENT: atraumatic, normocephalic Eye exam: PRESENT: EOMI Ear exam: PRESENT: normal external ear exam Mouth exam: PRESENT: neck supple Neck exam: ABSENT: tracheal deviation Respiratory exam: PRESENT: symmetrical, unlabored. ABSENT: accessory muscle use, wheezes Pulses: PRESENT: normal radial pulses, normal dorsalis pedis pulse Vascular exam: PRESENT: normal capillary refill GI/Abdominal exam: ABSENT: distended, firm Extremities exam: PRESENT: full ROM of bilateral shoulders, elbows wrists, knees, hips and ankles without pain Musculoskeletal exam: PRESENT: full ROM, normal inspection of all 4 extremities aside from that noted below. Neurological exam: PRESENT: alert, awake, oriented to person, oriented to place, oriented to time Psychiatric exam: PRESENT: appropriate affect. ABSENT: agitated Focused psych exam: ABSENT: catatonic Skin exam: PRESENT: intact. ABSENT: dry All as above aside from that noted in the HPI and the following: Left lower extremity -Currently in a splint, clean dry and intact. -Compartments soft. -Capillary refill 2+ -moving all toes, sensation intact to DPN SPN and tibial nerve. Left upper extremity - Placed in sling - Grossly NVI - No excessive swelling - TTP about the left shoulder Results Laboratory Results: 10/01/19 11:19 10/01/19 11:19 10/01/19 10/01/19 11: 11:19 WBC 14.1 H RBC 3.63 L Hgb 11.1 L Hct 32.0 L MCV 88 MCH 30.5 MCHC 34.6 RDW 13.6 Plt Count 373 Seg Neutrophils % Not Reportable Sodium 130.7 L Potassium 4.8 Chloride 96 L Carbon Dioxide 24 Anion Gap 11 BUN 12 Creatinine 0.51 L Est GFR ( Amer) > 60 Glucose 96 Calcium 8.9 Total Bilirubin 0.7 AST 38 H Alkaline Phosphatase 131 H Total Protein 6.4 Albumin 3.5 Impressions: Ankle X-Ray 10/01/19 09:20 IMPRESSION: Acute fractures of the medial malleolus extending into the ankle mortise, and along the distal tip of the fibula Foot X-Ray 10/01/19 09:20 IMPRESSION: Hairline acute non displaced transverse fracture base 5th metatarsal Head CT 10/01/19 10:33 IMPRESSION: NORMAL BRAIN CT WITHOUT CONTRAST. EVIDENCE OF ACUTE STROKE: NO. Cervical Spine CT 10/01/19 10:36 IMPRESSION: No acute findings Assessment & Plan - Diagnosis (1) Closed left ankle fracture Qualifiers: Encounter type: initial encounter Qualified Code(s): S82.892A - Other fracture of left lower leg, initial encounter for closed fracture Is this a current diagnosis for this admission?: Yes Plan: - LEYLA BAILON - Maintain Splint C/D/I - PT/OT evaluation for disposition planning - Follow in my clinic in 7-10 days for repeat XR and splint change (2) Closed fracture of left proximal humerus Plan: Maintain left upper extremity sling - Follow either with myself or with Dr. Hernandez for her left proximal humerus, as she has seen him previously for this. - YUNG MAYER.
[2019-10-02] MEDS: HEPARIN SOD (PORCINE) 5,000 UNIT/ML 1 ML VIAL SUBCUT SCH ×3 (06:31→22:28)
[2019-10-02] MEDS: PANTOPRAZOLE SODIUM 40 MG TABLET.DR PO SCH ×2 (06:31→18:12)
[2019-10-02] MEDS: LEVOTHYROXINE SODIUM 0.05 MG TABLET PO SCH (06:31)
[2019-10-02] MEDS: AMOXICILLIN TRIHYDRATE 500 MG CAPSULE PO SCH ×3 (06:31→22:29)
[2019-10-02 06:41] LABS: ABSOLUTE BASOPHILS # (AUTO) 0.1 10^3/uL (0.0-0.2); ABSOLUTE EOSINOPHILS # (AUTO) 0.2 10^3/uL (0.0-0.6); ABSOLUTE MONOCYTES (AUTO) 0.7 10^3/uL (0.1-1.4); ABSOLUTE NEUT (AUTO) 10.3 10^3/uL (1.7-8.2); BASOPHILS % (AUTO) 0.5 % (0-2); EOSINOPHILS % (AUTO) 1.4 % (0-6); HEMATOCRIT 31.4 % (36.0-47.0); HEMOGLOBIN 10.7 g/dL (12.0-15.5); LYMPHOCYTES % (AUTO) 15.1 % (13-45); MEAN CORPUSCULAR HEMOGLOBIN 29.8 pg (27.0-33.4); MEAN CORPUSCULAR HGB CONC 34.3 g/dL (32.0-36.0); MEAN CORPUSCULAR VOLUME 87 fl (80-97); MONOCYTES % (AUTO) 5.6 % (3-13); PLATELET COUNT 369 10^3/uL (150-450); RED CELL DISTRIBUTION WIDTH 13.3 % (11.5-14.0); SEGMENTED NEUTROPHILS % (AUTO) 77.4 % (42-78); TOTAL CELLS COUNTED % (AUTO) 100 %; WHITE BLOOD COUNT 13.3 10^3/uL (4.0-10.5)
[2019-10-02 07:04] LABS: ALBUMIN 3.5 g/dL (3.5-5.0); ALKALINE PHOSPHATASE 137 U/L (38-126); ANION GAP 13 (5-19); ASPARTATE AMINO TRANSFERASE 28 U/L (14-36); BILIRUBIN,DIRECT 0.2 mg/dL (0.0-0.4); BILIRUBIN,TOTAL 0.8 mg/dL (0.2-1.3); BLOOD UREA NITROGEN 12 mg/dL (7-20); CALCIUM 8.7 mg/dL (8.4-10.2); CARBON DIOXIDE 21 mmol/L (22-30); CHLORIDE 94 mmol/L (98-107); GLUCOSE 92 mg/dL (75-110); POTASSIUM 4.4 mmol/L (3.6-5.0); TOTAL PROTEIN 6.4 g/dL (6.3-8.2)
[2019-10-02] MEDS: SERTRALINE HCL 50 MG TABLET PO SCH (10:04)
[2019-10-02] MEDS: DOCUSATE SODIUM 100 MG CAPSULE PO SCH ×2 (10:06→18:14)
--- NOTE | 2019-10-02 13:53 | PDOC PROGRESS REPORT ---
Subjective Progress Note for:: 10/02/19 Subjective:: AFSHAN CHAN is a 89 year old female past medical history of hypertension, depression, hypothyroidism, who was recently seen in the ED for left humeral fracture and discharged from ED, presenting to ED after sustaining a mechanical fall at home. Last night around 10 PM while trying to put on her pants with the help of her daughter she fell to the right side hitting her forehead and sustaining a laceration of the right elbow, she also noted left foot and ankle pain and unable to bear any weight on it. Patient denies having any palpitation, lightheadedness, chest pain prior to fall, did not lose consciousness, and did not have any convulsions. Patient denies any headache, vision changes, any focal numbness or tingling, shortness of breath, chest pain, palpitation, lightheadedness, nausea, vomiting, diarrhea, constipation or any urinary symptoms. Patient is p.o. tolerant, having normal bowel and bladder movements. No acute events overnight. Patient is very pleasant and cooperative with physical examination. Resting in bed in no apparent distress. Pain is improving. Received physical therapy. Pending placement. Reason For Visit: FALL, LT FOOT FRACTURE Physical Exam Vital Signs: Temp Pulse Resp BP Pulse Ox 98.6 F 73 18 142/61 H 95 10/02/19 11:08 10/02/19 11:08 10/02/19 11:08 10/02/19 11:08 10/02/19 11:08 Intake & Output 10/01/19 10/02/19 10/03/19 06:59 06:59 06:59 Intake Total 780 480 Output Total 1 Balance 779 480 Weight 71.2 kg General appearance: PRESENT: no acute distress, well-developed, well-nourished Head exam: PRESENT: atraumatic, normocephalic Respiratory exam: PRESENT: clear to auscultation verónica. ABSENT: rales, rhonchi, wheezes Cardiovascular exam: PRESENT: RRR. ABSENT: diastolic murmur, rubs, systolic murmur Extremities exam: PRESENT: full ROM, tenderness - Left ankle tenderness.. ABSENT: calf tenderness, clubbing, pedal edema Neurological exam: PRESENT: alert, awake, oriented to person, oriented to place, oriented to time, oriented to situation, CN II-XII grossly intact. ABSENT: motor sensory deficit Results Laboratory Results: 10/02/19 06:14 10/02/19 06:14 10/02/19 10/02/19 06:14 06:14 WBC 13.3 H RBC 3.60 L Hgb 10.7 L Hct 31.4 L MCV 87 MCH 29.8 MCHC 34.3 RDW 13.3 Plt Count 369 Seg Neutrophils % 77.4 Sodium 127.9 L Potassium 4.4 Chloride 94 L Carbon Dioxide 21 L Anion Gap 13 BUN 12 Creatinine 0.53 Est GFR ( Amer) > 60 Glucose 92 Calcium 8.7 Magnesium 1.8 Total Bilirubin 0.8 AST 28 Alkaline Phosphatase 137 H Total Protein 6.4 Albumin 3.5 Impressions: Ankle X-Ray 10/01/19 09:20 IMPRESSION: Acute fractures of the medial malleolus extending into the ankle mortise, and along the distal tip of the fibula Foot X-Ray 10/01/19 09:20 IMPRESSION: Hairline acute non displaced transverse fracture base 5th metatarsal Head CT 10/01/19 10:33 IMPRESSION: NORMAL BRAIN CT WITHOUT CONTRAST. EVIDENCE OF ACUTE STROKE: NO. Cervical Spine CT 10/01/19 10:36 IMPRESSION: No acute findings Assessment and Plan - Diagnosis (1) Fall Qualifiers: Encounter type: initial encounter Qualified Code(s): W19.XXXA - Unspecified fall, initial encounter Is this a current diagnosis for this admission?: Yes Plan: Mechanical fall. Negative for any focal neurological symptoms. Alert oriented x4. CT head and neck negative for any acute abnormalities. Implement fall, seizure precautions. Supportive measures. PT OT. Patient lives alone by herself. Given her left humeral and left foot fractures and recurrent falls patient may benefit from being discharged to short-term rehab. I have discussed this with patient and she is agreeable. (2) Fracture of fifth metatarsal bone of left foot Qualifiers: Encounter type: initial encounter Fracture type: closed Fracture a lignment: nondisplaced Qualified Code(s): S92.355A - Nondisplaced fracture of fifth metatarsal bone, left foot, initial encounter for closed fracture Is this a current diagnosis for this admission?: Yes Plan: Non-comminuted. Neurovascularly intact. Orthopedic surgery consulted. No surgical intervention at this point. PT and inpatient rehab recommended. (3) GERD (gastroesophageal reflux disease) Qualifiers: Esophagitis presence: esophagitis presence not specified Qualified Code(s): K21.9 - Gastro-esophageal reflux disease without esophagitis Is this a current diagnosis for this admission?: Yes Plan: Takes omeprazole at home. Restart PPI. Outpatient gastroenterology follow-up. (4) Hypercholesterolemia Is this a current diagnosis for this admission?: Yes Plan: Restart home meds. (5) Hypothyroid Is this a current diagnosis for this admission?: Yes Plan: Takes levothyroxine at home. Restart home meds. Outpatient PCP follow-up. (6) Hypertension Is this a current diagnosis for this admission?: Yes Plan: Normotensive. Euvolemic. Takes amlodipine 5 mg at home. Restart home meds. Adjust meds as needed. PRN hydralazine and metoprolol. (7) Laceration of right upper extremity Qualifiers: Encounter type: initial encounter Qualified Code(s): S41.111A - Laceration without foreign body of right upper arm, initial encounter Is this a current diagnosis for this admission?: Yes Plan: Due to mechanical fall. Wound looks clean. No sign of infection. Continue prophylactic Augmentin day 2/5. Continue wound care. Cultures no g mateo so far.
--- NOTE | 2019-10-02 14:49 | PDOC PROGRESS REPORT ---
Subjective Progress Note for:: 10/02/19 Subjective:: She continues to do well with no changes overnight. Pain is well controlled. Reason For Visit: FALL, LT FOOT FRACTURE Physical Exam Vital Signs: Temp Pulse Resp BP Pulse Ox 98.6 F 73 18 142/61 H 95 10/02/19 11:08 10/02/19 11:08 10/02/19 11:08 10/02/19 11:08 10/02/19 11:08 Intake & Output 10/01/19 10/02/19 10/03/19 06:59 06:59 06:59 Intake Total 780 480 Output Total 1 Balance 779 480 Weight 71.2 kg Physical Exam: General appearance: PRESENT: no acute distress, cooperative, well-nourished Head exam: PRESENT: atraumatic, normocephalic Eye exam: PRESENT: EOMI Ear exam: PRESENT: normal external ear exam Mouth exam: PRESENT: neck supple Neck exam: ABSENT: tracheal deviation Respiratory exam: PRESENT: symmetrical, unlabored. ABSENT: accessory muscle use, wheezes Pulses: PRESENT: normal radial pulses, normal dorsalis pedis pulse Vascular exam: PRESENT: normal capillary refill GI/Abdominal exam: ABSENT: distended, firm Extremities exam: PRESENT: full ROM of bilateral shoulders, elbows wrists, knees, hips and ankles without pain Musculoskeletal exam: PRESENT: full ROM, normal inspection of all 4 extremities aside from that noted below. Neurological exam: PRESENT: alert, awake, oriented to person, oriented to place, oriented to time Psychiatric exam: PRESENT: appropriate affect. ABSENT: agitated Focused psych exam: ABSENT: catatonic Skin exam: PRESENT: intact. ABSENT: dry All as above aside from that noted in the HPI and the following: Left lower extremity -Currently in a splint, clean dry and intact. -Compartments soft. -Capillary refill 2+ -moving all toes, sensation intact to DPN SPN and tibial nerve. Left upper extremity - Placed in sling - Grossly NVI - No excessive swelling - TTP about the left shoulder Results Laboratory Results: 10/02/19 06:14 10/02/19 06:14 10/02/19 10/02/19 06:14 06:14 WBC 13.3 H RBC 3.60 L Hgb 10.7 L Hct 31.4 L MCV 87 MCH 29.8 MCHC 34.3 RDW 13.3 Plt Count 369 Seg Neutrophils % 77.4 Sodium 127.9 L Potassium 4.4 Chloride 94 L Carbon Dioxide 21 L Anion Gap 13 BUN 12 Creatinine 0.53 Est GFR ( Amer) > 60 Glucose 92 Calcium 8.7 Magnesium 1.8 Total Bilirubin 0.8 AST 28 Alkaline Phosphatase 137 H Total Protein 6.4 Albumin 3.5 Impressions: Ankle X-Ray 10/01/19 09:20 IMPRESSION: Acute fractures of the medial malleolus extending into the ankle mortise, and along the distal tip of the fibula Foot X-Ray 10/01/19 09:20 IMPRESSION: Hairline acute non displaced transverse fracture base 5th metatarsal Head CT 10/01/19 10:33 IMPRESSION: NORMAL BRAIN CT WITHOUT CONTRAST. EVIDENCE OF ACUTE STROKE: NO. Cervical Spine CT 10/01/19 10:36 IMPRESSION: No acute findings Assessment & Plan - Diagnosis (1) Closed left ankle fracture Qualifiers: Encounter type: initial encounter Qualified Code(s): S82.892A - Other fracture of left lower leg, initial encounter for closed fracture Is this a current diagnosis for this admission?: Yes Plan: -I continue to recommend a cam walker boot on the left with nonweightbearing for 5 weeks. -She can follow with me in the clinic for x-rays 10 to 14 days from now -She is considering rehab options in the [place] area, and I am fine with her following with a local orthopedic surgeon up there as long as someone will keep track of her. Otherwise she can continue to see me - Time Time Spent with patient: Less than 15 minutes
[2019-10-02] MEDS: AMLODIPINE BESYLATE 5 MG TABLET PO SCH (18:12)
[2019-10-03] MEDS: AMOXICILLIN TRIHYDRATE 500 MG CAPSULE PO SCH ×3 (06:18→22:26)
[2019-10-03] MEDS: PANTOPRAZOLE SODIUM 40 MG TABLET.DR PO SCH ×2 (06:18→18:08)
[2019-10-03] MEDS: HEPARIN SOD (PORCINE) 5,000 UNIT/ML 1 ML VIAL SUBCUT SCH ×3 (06:18→22:26)
[2019-10-03] MEDS: LEVOTHYROXINE SODIUM 0.05 MG TABLET PO SCH (06:19)
[2019-10-03] MEDS: SERTRALINE HCL 50 MG TABLET PO SCH (10:15)
[2019-10-03] MEDS: DOCUSATE SODIUM 100 MG CAPSULE PO SCH ×2 (10:18→18:09)
--- NOTE | 2019-10-03 12:50 | PDOC PROGRESS REPORT ---
Subjective Progress Note for:: 10/03/19 Subjective:: AFSHAN CHAN is a 89 year old female past medical history of hypertension, depression, hypothyroidism, who was recently seen in the ED for left humeral fracture and discharged from ED, presenting to ED after sustaining a mechanical fall at home. Last night around 10 PM while trying to put on her pants with the help of her daughter she fell to the right side hitting her forehead and sustaining a laceration of the right elbow, she also noted left foot and ankle pain and unable to bear any weight on it. Patient denies having any palpitation, lightheadedness, chest pain prior to fall, did not lose consciousness, and did not have any convulsions. Patient denies any headache, vision changes, any focal numbness or tingling, shortness of breath, chest pain, palpitation, lightheadedness, nausea, vomiting, diarrhea, constipation or any urinary symptoms. Patient is p.o. tolerant, having normal bowel and bladder movements. No acute events overnight. Patient is very pleasant and cooperative with physical examination. Resting in bed in no apparent distress. Pain is improving. Still not able to bear weight. Pending placement. Reason For Visit: FALL, LT FOOT FRACTURE Physical Exam Vital Signs: Temp Pulse Resp BP Pulse Ox 98.2 F 69 18 107/65 97 10/03/19 11:17 10/03/19 11:17 10/03/19 11:17 10/03/19 11:17 10/03/19 11:17 Intake & Output 10/02/19 10/03/19 10/04/19 06:59 06:59 06:59 Intake Total 780 1080 Output Total 1 Balance 779 1080 Weight 71.2 kg 74 kg General appearance: PRESENT: no acute distress, well-developed, well-nourished Head exam: PRESENT: atraumatic, normocephalic Respiratory exam: PRESENT: clear to auscultation verónica. ABSENT: rales, rhonchi, wheezes Cardiovascular exam: PRESENT: RRR. ABSENT: diastolic murmur, rubs, systolic murmur Musculoskeletal exam: PRESENT: tenderness - Left ankle. Neurovascularly intact. Results Laboratory Results: 10/02/19 06:14 10/02/19 06:14 Impressions: Ankle X-Ray 10/01/19 09:20 IMPRESSION: Acute fractures of the medial malleolus extending into the ankle mortise, and along the distal tip of the fibula Foot X-Ray 10/01/19 09:20 IMPRESSION: Hairline acute non displaced transverse fracture base 5th metatarsal Head CT 10/01/19 10:33 IMPRESSION: NORMAL BRAIN CT WITHOUT CONTRAST. EVIDENCE OF ACUTE STROKE: NO. Cervical Spine CT 10/01/19 10:36 IMPRESSION: No acute findings Assessment and Plan - Diagnosis (1) Fall Qualifiers: Encounter type: initial encounter Qualified Code(s): W19.XXXA - Unspecified fall, initial encounter Is this a current diagnosis for this admission?: Yes Plan: Mechanical fall. Negative for any focal neurological symptoms. Alert oriented x4. CT head and neck negative for any acute abnormalities. Implement fall, seizure precautions. Supportive measures. PT OT. Patient lives alone by herself. Given her left humeral and left foot fractures and recurrent falls patient may benefit from being discharged to short-term rehab. I have discussed this with patient and she is agreeable. (2) Fracture of fifth metatarsal bone of left foot Qualifiers: Encounter type: initial encounter Fracture type: closed Fracture alignment: nondisplaced Qualified Code(s): S92.355A - Nondisplaced fracture of fifth metatarsal bone, left foot, initial encounter for closed fracture Is this a current diagnosis for this admission?: Yes Plan: Non-comminuted. Neurovascularly intact. Orthopedic surgery consulted. No surgical intervention at this point. PT and inpatient rehab recommended. (3) GERD (gastroesophageal reflux disease) Qualifiers: Esophagitis presence: esophagitis presence not specified Qualified Code(s): K21.9 - Gastro-esophageal reflux disease without esophagitis Is this a current diagnosis for this admission?: Yes Plan: Takes omeprazole at home. Restart PPI. Outpatient gastroenterology follow-up. (4) Hypercholesterolemia Is this a current diagnosis for this admission?: Yes Plan: Restart home meds. (5) Hypothyroid Is this a current diagnosis for this admission?: Yes Plan: Takes levothyroxine at home. Restart home meds. Outpatient PCP follow-up. (6) Hypertension Is this a current diagnosis for this admission?: Yes Plan: Normotensive. Euvolemic. Takes amlodipine 5 mg at home. Restart home meds. Adjust meds as needed. PRN hydralazine and metoprolol. (7) Laceration of right upper extremity Qualifiers: Encounter type: initial encounter Qualified Code(s): S41.111A - Laceration without foreign body of right upper arm, initial encounter Is this a current diagnosis for this admission?: Yes Plan: Due to mechanical fall. Wound looks clean. No sign of infection. Continue prophylactic Augmentin day 3/5. Continue wound care. Cultures no growth so far. (8) Ambulatory dysfunction Is this a current diagnosis for this admission?: Yes Plan: Patient has history of multiple falls and has sustained humeral and ankle fractures. Patient would likely benefit from short-term inpatient rehab. Continue PT OT while inpatient.
[2019-10-03] MEDS ORDERED: PROMETHAZINE HCL INJ 25 MG/1 ML VIAL IV PRN (13:00)
[2019-10-03] MEDS ORDERED: ONDANSETRON HCL INJ/PF 4 MG/2 ML SDV IV PRN (13:00)
--- NOTE | 2019-10-03 16:48 | Physician Advisory Note ---
Physician Advisor ProgressNote .: Pursuant to the plan for [facility], I have reviewed the medical record for this patient. Physician Advisor Statement: Asked to review case r.e. status. 89yo w/CLL, HTN, hypothyroidism, etc. LUE already immobilized in sling due to fx 11d sloop captain, came in due to Lt ankle/foot pain after another mechanical fall. (+)fx.s ankle & foot, has to be kept in boot w/NWB status to LLE (& LUE). No surgery recommended. Not needing IV PRNs or showing new abnormal findings that require ongoing hospital level care. Na low, but that appears chronic. WBC up, but has CLL. Bicarb has dropped since arrival, but there is no comment from attending indicating this is of concern. Pt unable to stand or manage ADLs in current state. Working w/PT/OT. Able to use slide board with assistance to transfer from bed to W/C. Has been kept a 2nd MN in hospital due to not having a safe d/c plan yet. Appropriately Obs initially, awaiting decision from surgeon r.e. need for surgery. - Since then, the main care has been detention/general caretaking + PT/OT, so no clear medical need for conversion to Inpt status to be covered by Medicare, per current CMS rules. Attending: If pt develops a new concerning clinical issue requiring more acute hospital level care rather than SNF level of care, please document it. Thanks, CK
[2019-10-03 17:31] LABS: ANION GAP 11 (5-19); BLOOD UREA NITROGEN 18 mg/dL (7-20); CALCIUM 8.7 mg/dL (8.4-10.2); CARBON DIOXIDE 21 mmol/L (22-30); CHLORIDE 93 mmol/L (98-107); GLUCOSE 151 mg/dL (75-110); POTASSIUM 4.4 mmol/L (3.6-5.0)
[2019-10-03] MEDS: AMLODIPINE BESYLATE 5 MG TABLET PO SCH (18:08)
[2019-10-04 05:27] LABS: ANION GAP 12 (5-19); BLOOD UREA NITROGEN 16 mg/dL (7-20); CARBON DIOXIDE 21 mmol/L (22-30); CHLORIDE 99 mmol/L (98-107); GLUCOSE 104 mg/dL (75-110); POTASSIUM 4.3 mmol/L (3.6-5.0)
[2019-10-04] MEDS: HEPARIN SOD (PORCINE) 5,000 UNIT/ML 1 ML VIAL SUBCUT SCH ×3 (06:13→22:30)
[2019-10-04] MEDS: PANTOPRAZOLE SODIUM 40 MG TABLET.DR PO SCH ×2 (06:14→17:41)
[2019-10-04] MEDS: AMOXICILLIN TRIHYDRATE 500 MG CAPSULE PO SCH ×3 (06:14→22:31)
[2019-10-04] MEDS: LEVOTHYROXINE SODIUM 0.05 MG TABLET PO SCH (06:14)
[2019-10-04] MEDS: SERTRALINE HCL 50 MG TABLET PO SCH (10:07)
[2019-10-04] MEDS: DOCUSATE SODIUM 100 MG CAPSULE PO SCH ×2 (10:07→17:41)
--- NOTE | 2019-10-04 16:04 | PDOC TRANSFER SUMMARY ---
Impression - Admit/DC Date/PCP Admission Date/Primary Care Provider: 10/01/19 12:51 BRIJESH MCALLISTER MD Discharge Date: 10/04/19 - Discharge Diagnosis (1) Closed left ankle fracture Is this a current diagnosis for this admission?: Yes (2) Closed fracture of left proximal humerus Is this a current diagnosis for this admission?: Yes (3) Fall Is this a current diagnosis for this admission?: Yes (4) Hypertension Is this a current diagnosis for this admission?: Yes (5) Laceration of right upper extremity Is this a current diagnosis for this admission?: Yes (6) GERD (gastroesophageal reflux disease) Is this a current diagnosis for this admission?: Yes (7) Hypercholesterolemia Is this a current diagnosis for this admission?: Yes (8) Hypothyroid Is this a current diagnosis for this admission?: Yes - Assessment Summary: Patient presented following a fall. In the emergency department, head CT and cervical spine CTs were negative for any fractures. However foot x-rays revealed closed fracture in her left ankle involving her metatarsal bones. Patient was admitted for this and subsequently evaluated by the orthopedic surgeon. The orthopedic surgeon deemed that no surgical intervention was needed and patient was given a cam walker boot. Patient is scheduled to follow-up with Dr. Dunn [orthopedics] for repeat x-rays and further evaluation of the fracture. Of note patient had a recent fall as well before this admission and had sustained a closed left humeral fracture for which she was placed in a sling. Patient has not required any narcotic medication for pain control trial testing in the hospital and patient is safe to be discharged with Tylenol as needed for control of pain. Patient was placed on Augmentin for prophylactic treatment of laceration in her arm to be continued for 2 more days. - Additional Information Resuscitation Status: Full Code Discharge Diet: As Tolerated Discharge Activity: Other - Nonweightbearing left arm and nonweightbearing to left leg Referrals: JHONNY DUNN JR, DO [ACTIVE PROVISIONAL STAFF] - 10/12/19 7:45 am (7-10 days) BRIJESH MCALLISTER MD [Primary Care Provider] - 10/12/19 4:15 pm Home Medications: Amlodipine Besylate [Norvasc 5 mg Tablet] 5 mg PO DAILY@1900 10/01/19 Cetirizine HCl [Zyrtec] 10 mg PO DAILYP PRN 10/01/19 Levothyroxine Sodium [Synthroid 0.05 mg Tablet] 50 mcg PO DAILY@0600 10/01/19 Losartan Potassium 100 mg PO QAM@0900 10/01/19 Omeprazole 40 mg PO DAILY@1600 10/01/19 Pravastatin Sodium [Pravachol] 10 mg PO QPM@1900 10/01/19 Promethazine HCl 12.5 mg PO Q6HP PRN 10/01/19 Sertraline HCl 100 mg PO DAILY@0900 10/01/19 Cyclosporine 0.05% Oph Emulsio [Restasis 0.05% Oph Emulsion Pf 0.4 ml] 1 drop OU BID 10/02/19 Acetaminophen [Tylenol 325 mg Tablet] 325 mg PO Q4HP PRN tablet 10/04/19 Amoxicillin Trihydrate [Amoxil 500 mg Capsule] 500 mg PO Q8 2 Days capsule 10/04/19 History of Present Illiness History of Present Illness: AFSHAN CHAN is a 89 year old female past medical history of hypertension, depression, hypothyroidism, who was recently seen in the ED for left humeral fracture and discharged from ED, presenting to ED after sustaining a mechanical fall at home. Last night around 10 PM while trying to put on her pants with the help of her daughter she fell to the right side hitting her forehead and sustaining a laceration of the right elbow, she also noted left foot and ankle pain and unable to bear any weight on it. Patient denies having any palpitation, lightheadedness, chest pain prior to fall, did not lose consciousness, and did not have any convulsions. Patient denies any headache, vision changes, any focal numbness or tingling, shortness of breath, chest pain, palpitation, lightheadedness, nausea, vomiting, diarrhea, constipation or any urinary symptoms. Patient is p.o. tolerant, having normal bowel and bladder movements. Physical Exam Vital Signs: Temp Pulse Resp BP Pulse Ox 97.8 F 66 15 122/57 L 96 10/04/19 12:00 10/04/19 12:00 10/04/19 12:00 10/04/19 12:00 10/04/19 12:00 Intake & Output 10/03/19 10/04/19 10/05/19 06:59 06:59 06:59 Intake Total 1080 790 Output Total 100 Balance 1080 690 Weight 74 kg 71.8 kg General appearance: PRESENT: no acute distress, cooperative Neck exam: ABSENT: JVD Respiratory exam: PRESENT: clear to auscultation verónica Cardiovascular exam: PRESENT: +S1, +S2 Extremities exam: PRESENT: other - Left ankle limb boot, left arm in sling Results Laboratory Results: WBC 13.3 10^3/uL (4.0-10.5) H 10/02/19 06:14 RBC 3.60 10^6/uL (3.72-5.28) L 10/02/19 06:14 Hgb 10.7 g/dL (12.0-15.5) L 10/02/19 06:14 Hct 31.4 % (36.0-47.0) L 10/02/19 06:14 MCV 87 fl (80-97) 10/02/19 06:14 MCH 29.8 pg (27.0-33.4) 10/02/19 06:14 MCHC 34.3 g/dL (32.0-36.0) 10/02/19 06:14 RDW 13.3 % (11.5-14.0) 10/02/19 06:14 Plt Count 369 10^3/uL (150-450) 10/02/19 06:14 Lymph % (Auto) 15.1 % (13-45) 10/02/19 06:14 [place] % (Auto) 5.6 % (3-13) 10/02/19 06:14 Eos % (Auto) 1.4 % (0-6) 10/02/19 06:14 Baso % (Auto) 0.5 % (0-2) 10/02/19 06:14 Absolute Neuts (auto) 10.3 10^3/uL (1.7-8.2) H 10/02/19 06:14 Absolute Lymphs (auto) 2.0 10^3/uL (0.5-4.7) 10/02/19 06:14 Absolute Monos (auto) 0.7 10^3/uL (0.1-1.4) 10/02/19 06:14 Absolute Eos (auto) 0.2 10^3/uL (0.0-0.6) 10/02/19 06:14 Absolute Basos (auto) 0.1 10^3/uL (0.0-0.2) 10/02/19 06:14 Total Counted 100 10/01/19 11: Seg Neutrophils % 77.4 % (42-78) 10/02/19 06:14 Seg Neuts % (Manual) 81 % (42-78) H 10/01/19 11:19 Lymphocytes % (Manual) 9 % (13-45) L 10/01/19 11:19 Monocytes % (Manual) 8 % (3-13) 10/01/19 11:19 Eosinophils % (Manual) 0 % (0-6) 10/01/19 11:19 Basophils % (Manual) 0 % (0-2) 10/01/19 11: Metamyelocytes % 2 % (0-1) H 10/01/19 11:19 Abs Neuts (Manual) 11.7 10^3/uL (1.7-8.2) H 10/01/19 11:19 Abs Lymphs (Manual) 1.3 10^3/uL (0.5-4.7) 10/01/19 11:19 Abs Monocytes (Manual) 1.1 10^3/uL (0.1-1.4) 10/01/19 11:19 Absolute Eos (Manual) 0.0 10^3/uL (0.0-0.6) 10/01/19 11:19 Abs Basophils (Manual) 0.0 10^3/uL (0.0-0.2) 10/01/19 11:19 Smudge Cells PRESENT 10/01/19 11:19 Platelet Comment ADEQUATE 10/01/19 11:19 Anisocytosis SLIGHT 10/01/19 11:19 Sodium 132.0 mmol/L (137-145) L 10/04/19 04:00 Potassium 4.3 mmol/L (3.6-5.0) 10/04/19 04:00 Chloride 99 mmol/L (98-107) 10/04/19 04:00 Carbon Dioxide 21 mmol/L (22-30) L 10/04/19 04:00 Anion Gap 12 (5-19) 10/04/19 04:00 BUN 16 mg/dL (7-20) 10/04/19 04:00 Creatinine 0.60 mg/dL (0.52-1.25) 10/04/19 04:00 Est GFR ( Amer) > 60 (>60) 10/04/19 04:00 Est GFR (MDRD) Non-Af > 60 (>60) 10/04/19 04:00 Glucose 104 mg/dL (75-110) 10/04/19 04:00 Calcium 9.0 mg/dL (8.4-10.2) 10/04/19 04:00 Magnesium 1.8 mg/dL (1.6-2.3) 10/02/19 06:14 Total Bilirubin 0.8 mg/dL (0.2-1.3) 10/02/19 06:14 Direct Bilirubin 0.2 mg/dL (0.0-0.4) 10/02/19 06:14 Neonat Total Bilirubin Not Reportable 10/02/19 06:14 Neonat Direct Bilirubin Not Reportable 10/02/19 06:14 Neonat Indirect Bili Not Reportable 10/02/19 06:14 AST 28 U/L (14-36) 10/02/19 06:14 ALT 36 U/L (<35) 10/02/19 06:14 Alkaline Phosphatase 137 U/L (38-126) H 10/02/19 06:14 Total Protein 6.4 g/dL (6.3-8.2) 10/02/19 06:14 Albumin 3.5 g/dL (3.5-5.0) 10/02/19 06:14 Impressions: Ankle X-Ray 10/01/19 09:20 IMPRESSION: Acute fractures of the medial malleolus extending into the ankle mortise, and along the distal tip of the fibula Foot X-Ray 10/01/19 09:20 IMPRESSION: Hairline acute non displaced transverse fracture base 5th metatarsal Head CT 10/01/19 10:33 IMPRESSION: NORMAL BRAIN CT WITHOUT CONTRAST. EVIDENCE OF ACUTE STROKE: NO. Cervical Spine CT 10/01/19 10:36 IMPRESSION: No acute findings Plan Time Spent: Less than 30 Minutes Stroke Is this a Stroke Patient?: No Acute Heart Failure - Is this a Heart Failure Patient?: No
[2019-10-04] MEDS: AMLODIPINE BESYLATE 5 MG TABLET PO SCH (19:00)
[2019-10-05] MEDS: AMOXICILLIN TRIHYDRATE 500 MG CAPSULE PO SCH ×2 (05:20→14:14)
[2019-10-05] MEDS: HEPARIN SOD (PORCINE) 5,000 UNIT/ML 1 ML VIAL SUBCUT SCH ×2 (05:20→14:15)
[2019-10-05] MEDS: LEVOTHYROXINE SODIUM 0.05 MG TABLET PO SCH (05:20)
[2019-10-05] MEDS: PANTOPRAZOLE SODIUM 40 MG TABLET.DR PO SCH ×2 (05:20→17:14)
[2019-10-05] MEDS: DOCUSATE SODIUM 100 MG CAPSULE PO SCH ×2 (09:16→17:14)
[2019-10-05] MEDS: SERTRALINE HCL 50 MG TABLET PO SCH (09:16)
--- NOTE | 2019-10-05 11:43 | PDOC PROGRESS REPORT ---
Subjective Progress Note for:: 10/05/19 Subjective:: The patient is doing very well. No new complaints or symptoms. Pain is well controlled. Reason For Visit: FALL, LT FOOT FRACTURE Physical Exam Vital Signs: Temp Pulse Resp BP Pulse Ox 98.1 F 67 16 115/57 L 96 10/05/19 08:13 10/05/19 08:13 10/05/19 08:13 10/05/19 08:13 10/05/19 08:13 Intake & Output 10/04/19 10/05/19 10/06/19 06:59 06:59 06:59 Intake Total 790 826 Output Total 100 800 Balance 690 26 Weight 71.8 kg 79.9 kg Physical Exam: General appearance: PRESENT: no acute distress, cooperative, well-nourished Head exam: PRESENT: atraumatic, normocephalic Eye exam: PRESENT: EOMI Ear exam: PRESENT: normal external ear exam Mouth exam: PRESENT: neck supple Neck exam: ABSENT: tracheal deviation Respiratory exam: PRESENT: symmetrical, unlabored. ABSENT: accessory muscle use, wheezes Pulses: PRESENT: normal radial pulses, normal dorsalis pedis pulse Vascular exam: PRESENT: normal capillary refill GI/Abdominal exam: ABSENT: distended, firm Extremities exam: PRESENT: full ROM of bilateral shoulders, elbows wrists, knees, hips and ankles without pain Musculoskeletal exam: PRESENT: full ROM, normal inspection of all 4 extremities aside from that noted below. Neurological exam: PRESENT: alert, awake, oriented to person, oriented to place, oriented to time Psychiatric exam: PRESENT: appropriate affect. ABSENT: agitated Focused psych exam: ABSENT: catatonic Skin exam: PRESENT: intact. ABSENT: dry All as above aside from that noted in the HPI and the following: Left lower extremity -Currently in a splint, clean dry and intact. -Compartments soft. -Capillary refill 2+ -moving all toes, sensation intact to DPN SPN and tibial nerve. Left upper extremity - Placed in sling - Grossly NVI - No excessive swelling - TTP about the left shoulder Results Laboratory Results: 10/02/19 06:14 10/04/19 04:00 Impressions: Ankle X-Ray 10/01/19 09:20 IMPRESSION: Acute fractures of the medial malleolus extending into the ankle mo rtise, and along the distal tip of the fibula Foot X-Ray 10/01/19 09:20 IMPRESSION: Hairline acute non displaced transverse fracture base 5th metatarsal Head CT 10/01/19 10:33 IMPRESSION: NORMAL BRAIN CT WITHOUT CONTRAST. EVIDENCE OF ACUTE STROKE: NO. Cervical Spine CT 10/01/19 10:36 IMPRESSION: No acute findings Assessment & Plan - Diagnosis (1) Closed left ankle fracture Qualifiers: Encounter type: initial encounter Qualified Code(s): S82.892A - Other fracture of left lower leg, initial encounter for closed fracture Is this a current diagnosis for this admission?: Yes Plan: -Maintain current splint. -Follow in my office for repeat x-rays in 10 to 14 days, we will place her in a cam boot at that time. -Nonweightbearing left lower extremity -Called [phone] for an appointment (2) Closed fracture of left proximal humerus Is this a current diagnosis for this admission?: Yes - Time Time Spent with patient: Less than 15 minutes
[2019-10-05 12:36] VITALS: BP 104/58
--- NOTE | 2019-10-05 13:57 | Progress Note ---
Provider Note Provider Note: Patient seen by me at bedside. Patient continues to state that she has no pain in her left arm and left leg. She states that she feels well and does not need any pain medication. Patient has no question for me at this time. Patient continues to remain medically stable and cleared for discharge. Currently await ing approval of PASSR for SNF placement.
[2019-10-05] MEDS: AMLODIPINE BESYLATE 5 MG TABLET PO SCH (19:22)
== END 2019-10-05 19:45 ==
LOC: ER 08:56 → EH 12:51 → 5 14:41
PROVIDERS: ADMIT Internal Medicine; ATTEND Internal Medicine
DX: S82.892A Other fracture of left lower leg, initial encounter for closed fracture (principal); S92.355A Nondisplaced fracture of fifth metatarsal bone, left foot, initial encounter for closed fracture; S51.011A Laceration without foreign body of right elbow, initial encounter; X50.1XXA Overexertion from prolonged static or awkward postures, initial encounter; S42.202A Unspecified fracture of upper end of left humerus, initial encounter for closed fracture; W19.XXXA Unspecified fall, initial encounter; Y92.009 Unspecified place in unspecified non-institutional (private) residence as the place of occurrence of the external cause; I10 Essential (primary) hypertension; K21.9 Gastro-esophageal reflux disease without esophagitis; E78.00 Pure hypercholesterolemia, unspecified; E03.9 Hypothyroidism, unspecified; S00.83XA Contusion of other part of head, initial encounter; F32.9 Major depressive disorder, single episode, unspecified; R29.6 Repeated falls; Z79.899 Other long term (current) drug therapy; Z85.6 Personal history of leukemia; Z60.2 Problems related to living alone
CPT/HCPCS: 99285; 36415 ×4; 87040; 83735; 85025 ×2; 80048 ×2; 80053 ×2; 73610; 73630; 70450; 72125; 97530 ×2; 97112; 97163; 97535 ×2; 97167; G0378 ×6; A9270 ×24; J1644 ×5; J3490